=== PATIENT | female | born 1990 | race African-American/Black ===

== ENCOUNTER 2016-09-11 23:22 | Inpatient (IN) | payer OTHER ==
[~2016-09-11] VITALS: Ht 162.6 cm; Wt 72.7 kg
[~2016-09-11 23:22] MED LIST: ACET50TA PO; FERR325T3 PO; IBUP80TA PO; NUPE1OIN2 TOP; PRENTAB40 PO; ZANTTAB PO
[2016-09-12] MEDS ORDERED: KETOROLAC 30 MG/ML VIAL (J1885) As Ordered ONE (00:04)
[2016-09-12] MEDS ORDERED: ONDANSETRON 4MG/2ML VIAL (J2405) As Ordered ONE (00:04)
[2016-09-12] MEDS ORDERED: ACETAMINOPHEN 325 MG TAB As Ordered ONE (00:04)
[2016-09-12 00:13] LABS: BASO # 0.1 K/mm3 (0.0-0.2); BASO % 0.4 % (0.0-1.0); CONTROL LINE HCG INT CTR LINE PRESENT; EOS % 0.1 % (0.0-3.0); LARGE UNSTAINED CELL # 0.4 K/mm3 (0.0-0.4); LARGE UNSTAINED CELL % 2.6 % (0.0-4.0); LYMPH # 1.7 K/mm3 (1.5-6.5); LYMPH % 7.7 % (24.0-44.0); MEAN CORPUSCULAR HEMOGLOBIN 25.6 pg (27.0-33.0); MEAN CORPUSCULAR HGB CONC 34.6 g/dl (32.0-36.5); MONO # 1.1 K/mm3 (0.0-0.8); MONO % 6.6 % (0.0-5.0); NEUTROPHILS # 13.8 K/mm3 (1.8-7.7); NEUTROPHILS % 82.5 % (36.0-66.0); PLATELET COUNT, AUTOMATED 172 k/mm3 (150-450); RED CELL DISTRIBUTION WIDTH 15.2 % (11.5-14.5); WHITE BLOOD COUNT 16.7 K/mm3 (4.0-10.0)
[2016-09-12 00:21] LABS: ALBUMIN 3.1 GM/DL (3.2-5.2); ALBUMIN/GLOBULIN RATIO 0.65 (1.00-1.93); ALKALINE PHOSPHATASE 99 U/L (45-117); ALT/SGPT 29 U/L (12-78); AMYLASE 48 U/L (25-115); ANION GAP 11 MEQ/L (8-16); AST/SGOT 39 U/L (15-37); BILIRUBIN,DIRECT 0.4 MG/DL (0.0-0.2); BILIRUBIN,TOTAL 1.4 MG/DL (0.2-1.0); BLOOD UREA NITROGEN 8 MG/DL (7-18); CALCIUM LEVEL 8.5 MG/DL (8.5-10.1); CARBON DIOXIDE LEVEL 24 MEQ/L (21-32); CHLORIDE LEVEL 101 MEQ/L (98-107); CREATININE FOR GFR 1.18 MG/DL (0.55-1.02); GLOMERULAR FILTRATION RATE > 60.0 (>60); GLUCOSE, FASTING 155 MG/DL (70-105); POTASSIUM SERUM 2.9 MEQ/L (3.5-5.1); SODIUM LEVEL 136 MEQ/L (136-145); TOTAL PROTEIN 7.9 GM/DL (6.4-8.2)
[2016-09-12] MEDS ORDERED: ISOVUE-370 76% 100ML VIAL (Q9967) As Ordered ONE (00:59)
--- NOTE | 2016-09-12 01:40 | REPUSA ---
CLINICAL HISTORY: Abdominal pain TECHNIQUE : A CT of the abdomen and pelvis was performed following the administration of oral and int ravenous contrast from the level of the heart to the proximal femoral diaphyses. Multiplanar reformat s were also obtained in coronal and sagittal projections. COMPARISON: None FINDINGS: LOWER CHEST: The lung bases are clear. Heart is normal in size. No pleural or pericardial effusion is seen. LIVER: The liver is normal in size and contour. No hepatic lesion is seen. The portal and hepatic vei ns are patent. BILIARY SYSTEM: No intrahepatic biliary ductal dilatation is seen. The common duct is normal in calib er. The gallbladder is unremarkable with no focal or diffuse wall thickening seen. No pericholecystic fluid is seen. No calcified biliary calculi are identified. PANCREAS: The pancreas is normal in size, contour and density. No solid or cystic pancreatic mass is seen. No pancreatic duct dilatation is seen. SPLEEN: The spleen is normal in size and without focal lesion. ADRENALS: The adrenal glands are unremarkable. KIDNEYS/URETERS: The kidneys are normal in size and demonstrate patchy nephrograms bilaterally. No st ones or hydronephrosis, gross mass or suspicious cystic lesion. URINARY BLADDER: The urinary bladder is unremarkable without calcified stone, wall thickening or dive rticula seen. UTERUS/ADNEXA: Within normal size limits with no suspicious lesion. AORTA AND ILIAC ARTERIES: No aneurysmal dilatation of the aorta or iliac arteries is seen. LYMPH NODES: No enlarged adenopathy. GASTROINTESTINAL: Stomach, duodenum and bowel normal in caliber. PERITONEUM/RETROPERITONEUM: No ascites or suspicious fluid collection, extraluminal air, or suspiciou s mass. ABDOMINAL/PELVIC WALL: No hernia is identified. OSSEOUS STRUCTURES/SOFT TISSUES: No suspicious osseous lesion, acute fracture, or soft tissue abnorma lity. IMPRESSION : Patchy bilateral nephrogram noted raising suspicion for pyelonephritis. No stones or hydronephrosis.
[2016-09-12] MEDS ORDERED: CIPROFLOXACIN/D5W 400 MG/200 ML BAG (J0744) As Ordered ONE (02:45)
[2016-09-12] MEDS ORDERED: POTASSIUM CHLORIDE 10 MEQ SR TABLET As Ordered ONE (02:57)
[2016-09-12] MEDS ORDERED: TYLE325T5 PO (03:35)
[2016-09-12] MEDS ORDERED: ONDANSETRON 4MG/2ML VIAL (J2405) IV PRN (04:00)
[2016-09-12] MEDS ORDERED: POTASSIUM CHLORIDE 10 MEQ SR TABLET PO ONE (04:15)
--- NOTE | 2016-09-12 04:55 | HPE ---
DATE OF ADMISSION: 09/12/2016 PRIMARY CARE PROVIDER: Linda Mabry. HISTORY OF PRESENT ILLNESS: This patient is a 25-year-old Citizen [place] speaking female, presented to [facility] on 09/11/2016, secondary to abdominal pain. Patient stated that the discomfort originally started two nights ago at the right lower quadrant and the discomfort would radiate through the whole abdomen and the right posterior back. Besides the discomfort, patient also noted to have nausea, vomiting, and subjective fevers. Due to the gastrointestinal (GI) symptoms, the patient has had very poor appetite for the past 2-3 days and patient feels her body is getting weaker. Patient has not had any bowel movement for the past 3 days and those symptoms never happened before. The symptom has been persistent and worsening. Patient denies any frequency or dysuria and denies any hematuria. No chest pain. No shortness of breath. When patient arrived to the emergency room, CT of the abdomen and pelvis with contrast was performed, showed possible for pyelonephritis and then the hospitalist team was called for admission. ALLERGIES: No known drug allergies. HOME MEDICATIONS: None. PAST MEDICAL HISTORY: None. PAST SURGICAL HISTORY: None. SOCIAL HISTORY: No smoking. No alcohol use. No recreational drug use. Patient is (G) 1, para (P) 1. REVIEW OF SYSTEMS: GENERAL: Positive fever and for the past 2 days has progressive weakness. HEENT: No vision changes. No auditory changes. CARDIOVASCULAR: No chest pain. No palpitations. RESPIRATORY: No shortness of breath. No cough. No sputum production. GASTROINTESTINAL: Persistent pain originally located at the right lower abdomen radiating to the bilateral lower abdomen and the right posterior back. Patient also had nausea, vomiting. No diarrhea is reported. GENITOURINARY: No frequency. No urgency. No dysuria. No hematuria. MUSCULOSKELETAL: Mo muscle pain or joint pain. NEUROLOGICAL: No numbness or tingling. OBJECTIVE: VITAL SIGNS: All the vital signs are within normal limits. Patient does not require any oxygen support. GENERAL: Fatigue. Alert and awake and oriented. HEENT: Normocephalic, atraumatic. Extraocular motor grossly intact. CARDIOVASCULAR: Positive S1, S2, regular rate. LUNGS: Clear to auscultation bilaterally. ABDOMEN: Tenderness to palpation of the bilateral lower abdomen. No rebound. No guarding. GENITOURINARY: Positive costovertebral angle (CVA) located at the right flank area and during percussion pain is reproduced and will radiate to the right inguinal area. EXTREMITIES: No lower extremity edema. No sign of cyanosis. NEUROLOGICAL: Sensation to fine touch grossly intact. Muscle strength 5/5. LABORATORY DATA: WBC 16.7, hemoglobin 11.1, hematocrit 32, platelet count is 172. Sodium is 136, potassium 3.9, chloride 101, carbon dioxide 24, BUN 8, creatinine 1.18, GFR greater than 60, fasting glucose 155, calcium 8.5, total bilirubin 1.4, direct bilirubin 0.4, AST 39, ALT 29, alkaline phosphatase 99, total protein 7.9, albumin 3.1, amylase 48, lipase 83. HCG is negative. Urinalysis is positive for 1 positive protein, 1 positive blood, 3 positive leukocyte esterase, 47 WBCs, 1 positive bacteria. Microbiology: Blood culture pending times two sets. Urine culture is pending. CT of the abdomen and pelvis with contrast shows patchy bilateral nephrogram raising suspicion for pyelonephritis. No stone or hydronephrosis. ASSESSMENT AND PLAN: 1. Pyelonephritis. Patient will be admitted to medical/surgical floor under inpatient status. Patient will be started on ciprofloxacin. Patient will continue on intravenous (IV) fluid. 2. Leukocytosis. Possibly secondary to pyelonephritis. Will follow with urine culture and blood cultures. 3. Hypokalemia. Potassium level of 2.9, most likely secondary to the fluid loss due to acute gastrointestinal (GI) symptoms. Patient will have oral and intravenous (IV) potassium supplement. 4. Hyperglycemia. Patient has a fasting glucose level of 155. Will follow with A1c. 5. Mild microcytic anemia. Will continue to monitor. 6. Deep venous thrombosis (DVT) prophylaxis. Patient does not have significant risks of developing DVT. No anticoagulation is warranted at this time.
[2016-09-12 05:20] VITALS: BP 109/66
--- NOTE | 2016-09-12 05:30 | EDDOCDS ---
Nurse's Notes [facility] Name: Hailee Sanders Age: 25 yrs Sex: Female : 1990 Arrival Date: 09/11/2016 Time: 23:22 Bed 10 Private MD: LEBRON Mckeon Diagnosis: Urinary tract infection, site not specified-bilateral pyelonephritis Presentation: 09/11 23:26 Presenting complaint: Patient states: reports that reported being weak, lf1 vomiting and unable to walk this morning. No recent travel outside the country. reports that speaks very little Bulgarian, primary language is Nigerian. Adult Sepsis Screening: The patient does not have new or worsening altered mentation. Patient has a respiratory rate of greater than or equal to 22 (1 point). Systolic blood pressure is greater than 100. Patient has a qSOFA score of 1- Negative Sepsis Screen. Suicide/Homicide risk assessment- Unable to assess, . No Bulgarian. Status: The patient is a dependent. Transition of care: patient was not received from another setting of care. 23:26 Acuity: ELEONORA Level 2 lf1 23:26 Method Of Arrival: Wheelchair lf1 Triage Assessment: 23:31 General: Appears ill, Behavior is drowsy, flat. Pain: Denies pain. HIV screening NA for lf1 this visit unable to consent. Neurological: Level of Consciousness is lethargic. EENT: Reports bad taste in mouth. Respiratory: Respiratory pattern is tachypnea Reports shortness of breath. GI: Reports lower abdominal pain, upper abd pain, nausea, vomiting. Derm: Skin is clammy. 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 none - PMHx: none; - PSHx: none; - Social history: Smoking status: Patient states was never smoker of tobacco. Preferred Language: Nigerian, The patient speaks a little Bulgarian. - Family history: Not pertinent. - : The pt / caregiver states he / she is not on anticoagulants. Home medication list is obtained from family members. - Exposure Risk Screening:: None identified. Screenin:49 Screening information is obtained from the patient. Fall risk: No risks identified. kas2 Assistance ADL's: requires no assistance with activities of daily living. Abuse/DV Screen: The patient / caregiver reports he/she is: not in a situation that causes fear, pain or injury. Nutritional screening: No deficits noted. Advance Directives: Currently, there is no health care proxy. There is no active DNR order. There is no living will. 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 Assessment: 23:47 General: Appears in no apparent distress, uncomfortable, well nourished, well groomed, kas2 Behavior is appropriate for age, cooperative. Pain: Location: all over body pain Pain currently is 6 out of 10 on a pain scale. Neurological: Level of Consciousness is awake, alert, Oriented to person, place, time. Cardiovascular: Capillary refill < 3 seconds Heart tones S1 S2 present Rhythm is sinus tachycardia No ectopy. Respiratory: Airway is patent Respiratory effort is even, unlabored, Respiratory pattern is regular, symmetrical, Breath sounds are clear bilaterally. GI: Abdomen is flat, non- distended Bowel sounds present X 4 quads. Abd is soft and non tender X 4 quads. Reports nausea, vomiting. : No deficits noted. Derm: Skin is intact, is healthy with good turgor, Skin is dry, Skin is Skin temperature is hot. 09/12 01:01 General: Patient sitting up in bed with family at bedside. Denies pain or discomfort at kas2 this time. No apparent distress at this time. Call mack within reach. Will continue to monitor.. 01:30 General: Patient up to bathroom to void.. kas2 01:43 General: Patient back from bathroom and resettled in bed. Family at bedside. No kas2 apparent distress at this time. Call mack within reach. Will continue to monitor.. 02:23 General: Appears in no apparent distress, comfortable, well nourished, well groomed, kas2 Behavior is appropriate for age, cooperative. Pain: Denies pain. Neurological: Level of Consciousness is awake, alert, Oriented to person, place, time. Cardiovascular: Rhythm is sinus rhythm No ectopy. Respiratory: Airway is patent Respiratory effort is even, unlabored, Respiratory pattern is regular, symmetrical. Derm: Skin is intact, is healthy with good turgor, Skin is dry, Skin is pink, warm & dry. Skin temperature is warm. 03:50 General: Patient sleeping at this time with family at bedside. No apparent distress kas2 noted. Appears comfortable. Respiratory pattern is even and unlabored. Airway is patent. Call amck within reach. Will continue to monitor.. Vital Signs: 09/11 23:23 BP 122 / 66; Pulse 133; Resp 20 S; Temp 104.9(O); Pulse Ox 99% on R/A; Weight 63.96 kg dd6 (R); Height 5 ft. 4 in. (162.56 cm) (R); 23:26 Resp 34; lf1 23:37 BP 113 / 68 (auto/); kas2 23:39 Pulse 118 MON; Pulse Ox 100% ; kas2 23:52 BP 118 / 65 (auto/); kas2 23:52 Pulse 110 MON; Pulse Ox 99% ; kas2 09/12 00:07 BP 112 / 64 (auto/); kas2 00:07 Pulse 110 MON; Pulse Ox 99% ; kas2 00:22 BP 108 / 59 (auto/); kas2 00:22 Pulse 106 MON; Pulse Ox 98% ; kas2 00:37 BP 109 / 60 (auto/); kas2 00:37 Pulse 102 MON; Pulse Ox 97% ; kas2 00:55 BP 100 / 58 (auto/); kas2 00:55 Pulse 100 MON; Pulse Ox 95% ; kas2 01:00 Resp 18; Temp 100.6(TE); Pulse Ox 100% ; kas2 01:11 BP 123 / 58 (auto/); kas2 01:12 Pulse 102 MON; Pulse Ox 99% ; kas2 01:22 BP 111 / 53 (auto/); kas2 01:22 Pulse 100 MON; Pulse Ox 98% ; kas2 01:40 BP 105 / 61 (auto/); kas2 01:41 Pulse 98 MON; Pulse Ox 94% ; kas2 02:53 BP 97 / 59 (auto/); kas2 02:53 Pulse 86 MON; Pulse Ox 97% ; kas2 03:57 BP 101 / 63; Pulse 82; Resp 18; Temp 98.4(TE); Pulse Ox 100% on R/A; Pain 0/10; kas2 04:38 BP 105 / 62; Pulse 85; Resp 18; Temp 98.6(O); Pulse Ox 99% on R/A; Pain 0/10; kas2 09/11 23:23 Body Mass Index 24.20 (63.96 kg, 162.56 cm) dd6 Vitals: 09/11 23:23 Log In Time: September 11, 2016 at 23:21. RN notified that patient meets Red Flag dd6 criteria. ED Course: 23:23 Patient visited by Arden Phelps PCA. dd6 23:23 Linda [facility] is Private Physician. dd6 23:23 Patient moved to Waiting dd6 23:30 Triage Initiated lf1 23:34 Yolanda Lowery RN is Primary Nurse. lf1 23:34 Patient visited by Dina Granados RN. sls1 23:34 Patient moved to 10 lf1 23:49 Inserted saline lock: 20 gauge in right antecubital area and blood collected. The kas2 patient tolerated the procedure well. No procedures done that require assistance. 23:50 Will Mckeon DO is Attending Physician. mm11 23:50 Patient visited by Yolanda Lowery RN. kas2 23:50 Patient visited by Will Mckeon DO. mm11 23:55 Patient visited by Will Mckeon DO. mm11 09/12 00:01 Amylase Sent. kas2 00:01 Basic Metabolic Profile Sent. kas2 00:01 CBC with Diff Sent. kas2 00:01 HCG,Serum Qualitative Sent. kas2 00:01 Lipase Sent. kas2 00:01 Liver Profile Sent. kas2 00:26 Patient visited by Yolanda Lowery RN. kas2 00:58 BLOOD CULTURES Sent. jmv 01:02 Patient visited by Yolanda Lowery RN. kas2 01:10 Patient visited by Yolanda Lowery RN. kas2 01:43 CT ABD & PELVIS: IV Contrast Only Returned. EDMS 01:45 Patient visited by Yolanda Lowery RN. kas2 01:45 Urine collected. Clean catch specimen. Urine specimen sent to lab. kas2 02:11 Patient name changed from Abla\S\\S\Sodehoume\S\ to Abla\S\Holali\S\Sodehoume. EDMS 02:24 Patient visited by Yolanda Lowery RN. kas2 02:43 Patient visited by Yolanda Lowery RN. kas2 02:47 Adrianna Owens campaign assistant. ys2 02:53 Patient visited by Yolanda Lowery RN. kas2 02:58 Adrianna Owens is Hospitalizing Provider. mm11 03:00 Patient visited by Yolanda Lowery RN. kas2 03:47 Adrianna Owens campaign assistant. ys2 03:52 Patient visited by Yolanda Lowery RN. kas2 03:58 Patient visited by Yolnada Lowery RN. kas2 04:06 [facility] [place] Payment Agreement was scanned into [employer] and attached to record. [facility] 04:23 Will Mckeon DO is Hospitalizing Provider. daq 04:33 Patient visited by Yolanda Lowery RN. kas2 04:34 [facility] [place] [facility] Payment Agreement was scanned into [employer] and attached to record. [facility] 04:39 The patient / caregiver is instructed regarding the plan of care and ED course. kas2 04:58 Patient visited by Yolanda Lowery RN. [facility] Administered Medications: 00:12 Drug: Acetaminophen 650 mg [acetaminophen 325 mg tablet (2 tabs)] Route: PO; kas2 00:12 Drug: NS 0.9% 1000 ml [sodium chloride 0.9 % intravenous solution] Route: IV; Rate: kas2 bolus; Site: right antecubital; 02:52 Follow up: IV Status: Completed infusion; IV Intake: 1000ml [facility] 00:12 Drug: Ondansetron 4 mg [ondansetron HCl 2 mg/mL intravenous solution (2 mL)] Route: kas2 IVP; Site: right antecubital; 00:12 Drug: ketorolac 30 mg [ketorolac 30 mg/mL (1 mL) injection solution (1 mL)] Route: IVP; [facility] Site: right antecubital; 02:52 Drug: Ciprofloxacin 400 mg [ciprofloxacin 400 mg/200 mL in 5 % dextrose intravenous [facility] piggyback] Route: IVPB; Rate: 200 mL/hr; Infused Over: 60 mins; Site: right antecubital; 03:00 Drug: Potassium Chloride 40 mEq [potassium chloride ER 10 mEq tablet,extended release kas2 (4 tabs)] Route: PO; Intake: 02:52 IV: 1000.00ml; Total: 1000.00ml. [facility] Order Results: Lab Order: Amylase; SPEC'M 09/11/16 23:43 Test: AMYLASE; Value: 48; Range: 25-115; Units: U/L; Status: F Lab Order: Basic Metabolic Profile; SPEC'M 09/11/16 23:43 Test: GLUCOSE, FASTING; Value: 155; Range: 70-105; Abnormal: Above high normal; Units: MG/DL; Status: F Test: BLOOD UREA NITROGEN; Value: 8; Range: 7-18; Units: MG/DL; Status: F Test: CREATININE FOR GFR; Value: 1.18; Range: 0.55-1.02; Abnormal: Above high normal; Units: MG/DL; Status: F Test: SODIUM LEVEL; Range: 136-145; Units: MEQ/L; Status: I Test: POTASSIUM SERUM; Range: 3.5-5.1; Units: MEQ/L; Status: I Test: CHLORIDE LEVEL; Range: 98-107; Units: MEQ/L; Status: I Test: CARBON DIOXIDE LEVEL; Range: 21-32; Units: MEQ/L; Status: I Test: ANION GAP; Range: 8-16; Units: MEQ/L; Status: I Test: CALCIUM LEVEL; Range: 8.5-10.1; Units: MG/DL; Status: I Test: GLOMERULAR FILTRATION RATE; Value: > 60.0; Range: >60; Status: F Test: SODIUM LEVEL; Value: 136; Range: 136-145; Units: MEQ/L; Status: F Test: POTASSIUM SERUM; Value: 2.9; Range: 3.5-5.1; Abnormal: Critical Low; Units: MEQ/L; Status: F Test: CHLORIDE LEVEL; Value: 101; Range: 98-107; Units: MEQ/L; Status: F Test: CARBON DIOXIDE LEVEL; Value: 24; Range: 21-32; Units: MEQ/L; Status: F Test: ANION GAP; Value: 11; Range: 8-16; Units: MEQ/L; Status: F Test: CALCIUM LEVEL; Value: 8.5; Range: 8.5-10.1; Units: MG/DL; Status: F Test Note: ; Units are mL/min/1.73 m2 Chronic Kidney Disease Staging per NKF: Stage I & II GFR >=60 Normal to Mildly Decreased Stage III GFR 30-59 Moderately Decreased Stage IV GFR 15-29 Severely Decreased Stage V GFR <15 Very Little GFR Left ESRD GFR <15 on MUSIC MINISTER Lab Order: CBC with Diff; SPEC'M 09/11/16 23:43 Test: WHITE BLOOD COUNT; Value: 16.7; Range: 4.0-10.0; Abnormal: Above high normal; Units: K/mm3; Status: F Test: RED BLOOD COUNT; Value: 4.32; Range: 4.00-5.40; Units: M/mm3; Status: F Test: HEMOGLOBIN; Value: 11.1; Range: 12.0-16.0; Abnormal: Below low normal; Units: g/dl; Status: F Test: HEMATOCRIT; Value: 32.0; Range: 36.0-47.0; Abnormal: Below low normal; Units: %; Status: F Test: MEAN CORPUSCULAR VOLUME; Value: 74.0; Range: 80.0-96.0; Abnormal: Below low normal; Units: fl; Status: F Test: MEAN CORPUSCULAR HEMOGLOBIN; Value: 25.6; Range: 27.0-33.0; Abnormal: Below low normal; Units: pg; Status: F Test: MEAN CORPUSCULAR HGB CONC; Value: 34.6; Range: 32.0-36.5; Units: g/dl; Status: F Test: RED CELL DISTRIBUTION WIDTH; Value: 15.2; Range: 11.5-14.5; Abnormal: Above high normal; Units: %; Status: F Test: PLATELET COUNT, AUTOMATED; Value: 172; Range: 150-450; Units: k/mm3; Status: F Test: NEUTROPHILS %; Value: 82.5; Range: 36.0-66.0; Abnormal: Above high normal; Units: %; Status: F Test: LYMPH %; Value: 7.7; Range: 24.0-44.0; Abnormal: Below low normal; Units: %; Status: F Test: MONO %; Value: 6.6; Range: 0.0-5.0; Abnormal: Above high normal; Units: %; Status: F Test: EOS %; Value: 0.1; Range: 0.0-3.0; Units: %; Status: F Test: BASO %; Value: 0.4; Range: 0.0-1.0; Units: %; Status: F Test: LARGE UNSTAINED CELL %; Value: 2.6; Range: 0.0-4.0; Units: %; Status: F Test: NEUTROPHILS #; Value: 13.8; Range: 1.8-7.7; Abnormal: Above high normal; Units: K/mm3; Status: F Test: LYMPH #; Value: 1.7; Range: 1.5-6.5; Units: K/mm3; Status: F Test: MONO #; Value: 1.1; Range: 0.0-0.8; Abnormal: Above high normal; Units: K/mm3; Status: F Test: EOS #; Value: 0.0; Range: 0.0-0.50; Units: K/mm3; Status: F Test: BASO #; Value: 0.1; Range: 0.0-0.2; Units: K/mm3; Status: F Test: LARGE UNSTAINED CELL #; Value: 0.4; Range: 0.0-0.4; Units: K/mm3; Status: F Lab Order: HCG,Serum Qualitative; SPEC' 09/11/16 23:43 Test: HCG, SERUM QUALITATIVE; Value: NEGATIVE; Range: NEGATIVE; Status: F Lab Order: Lipase; SPEC 09/11/16 23:43 Test: LIPASE; Value: 83; Range: 73-393; Units: U/L; Status: F Lab Order: Liver Profile; SPEC 09/11/16 23:43 Test: AST/SGOT; Value: 39; Range: 15-37; Abnormal: Above high normal; Units: U/L; Status: F Test: ALT/SGPT; Value: 29; Range: 12-78; Units: U/L; Status: F Test: ALKALINE PHOSPHATASE; Value: 99; Range: 45-117; Units: U/L; Status: F Test: BILIRUBIN,TOTAL; Value: 1.4; Range: 0.2-1.0; Abnormal: Above high normal; Units: MG/DL; Status: F Test: BILIRUBIN,DIRECT; Value: 0.4; Range: 0.0-0.2; Abnormal: Above high normal; Units: MG/DL; Status: F Test: TOTAL PROTEIN; Value: 7.9; Range: 6.4-8.2; Units: GM/DL; Status: F Test: ALBUMIN; Value: 3.1; Range: 3.2-5.2; Abnormal: Below low normal; Units: GM/DL; Status: F Test: ALBUMIN/GLOBULIN RATIO; Value: 0.65; Range: 1.00-1.93; Abnormal: Below low normal; Status: F Lab Order: Urinalysis; SPEC'M 09/12/16 01:41 Test: APPEARANCE, URINE; Value: HAZY; Range: CLEAR; Status: F Test: COLOR, URINE; Value: YELLOW; Range: YELLOW; Status: F Test: PH,URINE; Value: 6.0; Range: 5.0-9.0; Units: UNITS; Status: F Test: SPECIFIC GRAVITY URINE AUTO; Value: 1.039; Range: 1.002-1.035; Status: F Test: PROTEIN, URINE AUTO; Value: 1+; Range: NEGATIVE; Abnormal: Above high normal; Units: mg/dL; Status: F Test: GLUCOSE, URINE (UA) AUTO; Value: NEGATIVE; Range: NEGATIVE; Units: mg/dL; Status: F Test: KETONE, URINE AUTO; Value: NEGATIVE; Range: NEGATIVE; Units: mg/dL; Status: F Test: UROBILINOGEN, URINE AUTO; Value: 2.0; Range: 0.0-2.0; Abnormal: Above high normal; Units: mg/dL; Status: F Test: BILIRUBIN, URINE AUTO; Value: NEGATIVE; Range: NEGATIVE; Status: F Test: NITRITE, URINE AUTO; Value: NEGATIVE; Range: NEGATIVE; Status: F Test: LEUKOCYTE ESTERASE, URINE AUTO; Value: 3+; Range: NEGATIVE; Abnormal: Above high normal; Status: F Test: BLOOD, URINE BLOOD; Value: 1+; Range: NEGATIVE; Abnormal: Above high normal; Status: F Test: WBC, URINE AUTO; Value: 47; Range: 0-3; Abnormal: Above high normal; Units: /HPF; Status: F Test: RBC, URINE AUTO; Value: 3; Range: 0-3; Units: /HPF; Status: F Test: BACTERIA, URINE AUTO; Value: 1+; Range: NEGATIVE; Abnormal: Above high normal; Status: F Test: SQUAMOUS EPITHELIAL CELL UR AU; Value: 7; Range: 0-6; Units: /HPF; Status: F Test: TRANSITIONAL EPITHELIAL AUTO; Value: 1; Range: NONE; Units: /HPF; Status: F Test: MUCUS, URINE; Value: SMALL; Range: NEGATIVE; Status: F Test: HYALINE CAST, URINE AUTO; Value: 0; Range: 0-1; Units: /LPF; Status: F Lab Order: HEMOGLOBIN A1C; SPEC'M 09/11/16 23:43 Test: HEMOGLOBIN A1c; Value: 4.7; Range: 4.5-6.2; Units: %; Status: F Test: ESTIMATED AVERAGE GLUCOSE; Value: 88; Range: 60-110; Units: MG/DL; Status: F Radiology Order: CT ABD & PELVIS: IV Contrast Only Test: CT ABD & PELVIS: IV Contrast Only REASON FOR EXAMINATION: Abdomen Pain; ; CLINICAL HISTORY: Abdominal pain; TECHNIQUE : A CT of the abdomen and pelvis was performed following the administration of oral and int; ravenous contrast from the level of the heart to the proximal femoral diaphyses. Multiplanar reformat; s were also obtained in coronal and sagittal projections.; COMPARISON: None; FINDINGS:; LOWER CHEST: The lung bases are clear. Heart is normal in size. No pleural or pericardial effusion is; seen.; LIVER: The liver is normal in size and contour. No hepatic lesion is seen. The portal and hepatic vei; ns are patent.; BILIARY SYSTEM: No intrahepatic biliary ductal dilatation is seen. The common duct is normal in calib; er. The gallbladder is unremarkable with no focal or diffuse wall thickening seen. No pericholecystic; fluid is seen. No calcified biliary calculi are identified.; PANCREAS: The pancreas is normal in size, contour and density. No solid or cystic pancreatic mass is; seen. No pancreatic duct dilatation is seen.; SPLEEN: The spleen is normal in size and without focal lesion.; ADRENALS: The adrenal glands are unremarkable.; KIDNEYS/URETERS: The kidneys are normal in size and demonstrate patchy nephrograms bilaterally. No st; ones or hydronephrosis, gross mass or suspicious cystic lesion.; URINARY BLADDER: The urinary bladder is unremarkable without calcified stone, wall thickening or dive; rticula seen.; UTERUS/ADNEXA: Within normal size limits with no suspicious lesion.; AORTA AND ILIAC ARTERIES: No aneurysmal dilatation of the aorta or iliac arteries is seen.; LYMPH NODES: No enlarged adenopathy.; GASTROINTESTINAL: Stomach, duodenum and bowel normal in caliber.; PERITONEUM/RETROPERITONEUM: No ascites or suspicious fluid collection, extraluminal air, or suspiciou; s mass.; ABDOMINAL/PELVIC WALL: No hernia is identified.; OSSEOUS STRUCTURES/SOFT TISSUES: No suspicious osseous lesion, acute fracture, or soft tissue abnorma; lity.; IMPRESSION :; Patchy bilateral nephrogram noted raising suspicion for pyelonephritis. No stones or hydronephrosis.; ; Outcome: 02:58 Decision to Hospitalize by Provider. mm11 04:39 Discharge Assessment: patient administered narcotics - no. The following High Risk [facility] Discharge criteria are identified: None. Admitted to Med/Surg accompanied by tech, via stretcher, with chart. Condition: good Condition: stable Condition: improved. CT Study completed. Property :Personal belongings accompany Pt. 05:27 Patient left the ED. [facility] Signatures: Dispatcher [employer] EDMS Sarah Wood, RN RN Evelyn Powell,RN RN lf1 Will Mckeon DO DO mm11 Arden Phelps, BUFFET WAITER/WAITRESS BUFFET WAITER/WAITRESS dd6 Dina Granados, RN RN don1 Anya Cramer Adrianna Owens 2 Yolanda Lowery RN RN kas2 Marino Donovan, BUFFET WAITER/WAITRESS BUFFET WAITER/WAITRESS jmv [facility]
--- NOTE | 2016-09-12 05:30 | EDDOCDS ---
Physician Documentation [facility] Name: Hailee Sanders Age: 25 yrs Sex: Female : 1990 Arrival Date: 09/11/2016 Time: 23:22 Bed 10 Private MD: Linda [facility] [place] Disposition: 09/12/16 02:58 Hospitalization ordered by Will Mckeon for Inpatient Admission. Preliminary diagnosis is Urinary tract infection, site not specified - bilateral pyelonephritis. - Bed requested for M PED. - Status is Inpatient Admission. kas2 - Condition is Stable. - Problem is an acute exacerbation. - Symptoms have improved. Historical: - Allergies: No known drug Allergies; - Home Meds: 1. none - PMHx: none; - PSHx: none; - Social history: Smoking status: Patient states was never smoker of tobacco. Preferred Language: Tajik, The patient speaks a little Beninese. - Family history: Not pertinent. - : The pt / caregiver states he / she is not on anticoagulants. Home medication list is obtained from family members. - Exposure Risk Screening:: None identified. 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 4 in. (162.56 cm) (R); 23:26 Resp 34; lf1 23:37 BP 113 / 68 (auto/); kas2 23:39 Pulse 118 MON; Pulse Ox 100% ; kas2 23:52 BP 118 / 65 (auto/); kas2 23:52 Pulse 110 MON; Pulse Ox 99% ; kas2 09/12 00:07 BP 112 / 64 (auto/); kas2 00:07 Pulse 110 MON; Pulse Ox 99% ; kas2 00:22 BP 108 / 59 (auto/); kas2 00:22 Pulse 106 MON; Pulse Ox 98% ; kas2 00:37 BP 109 / 60 (auto/); kas2 00:37 Pulse 102 MON; Pulse Ox 97% ; kas2 00:55 BP 100 / 58 (auto/); kas2 00:55 Pulse 100 MON; Pulse Ox 95% ; kas2 01:00 Resp 18; Temp 100.6(TE); Pulse Ox 100% ; kas2 01:11 BP 123 / 58 (auto/); kas2 01:12 Pulse 102 MON; Pulse Ox 99% ; kas2 01:22 BP 111 / 53 (auto/); kas2 01:22 Pulse 100 MON; Pulse Ox 98% ; kas2 01:40 BP 105 / 61 (auto/); kas2 01:41 Pulse 98 MON; Pulse Ox 94% ; kas2 02:53 BP 97 / 59 (auto/); kas2 02:53 Pulse 86 MON; Pulse Ox 97% ; kas2 03:57 BP 101 / 63; Pulse 82; Resp 18; Temp 98.4(TE); Pulse Ox 100% on R/A; Pain 0/10; kas2 04:38 BP 105 / 62; Pulse 85; Resp 18; Temp 98.6(O); Pulse Ox 99% on R/A; Pain 0/10; kas2 09/11 23:23 Body Mass Index 24.20 (63.96 kg, 162.56 cm) dd6 MDM: 09/11 23:57 Acetaminophen Tablet 650 mg PO once ordered. mm11 23:57 NS 0.9% 1000 ml IV at bolus once ordered. mm11 23:57 Ondansetron 4 mg IVP once ordered. mm11 23:57 ketorolac 30 mg IVP once ordered. mm11 23:57 -Blood Culture (Adults Only), peripheral from different site, or from device/port/PICC mm11 etc. if present ordered. 23:57 IV Saline Lock ordered. mm11 23:57 Undress patient appropriately for examination ordered. mm11 23:59 Amylase Ordered. EDMS 23:59 Basic Metabolic Profile Ordered. EDMS 23:59 CBC with Diff Ordered. EDMS 23:59 HCG,Serum Qualitative Ordered. EDMS 23:59 Lipase Ordered. EDMS 23:59 Liver Profile Ordered. EDMS 23:59 Urinalysis Ordered. EDMS 23:59 -Blood Culture Ordered. EDMS 23:59 Urine Culture Ordered. EDMS 23:59 Chest, 2 View (pa\E\lat) Ordered. EDMS 09/12 00:02 -Blood Culture (Adults Only), peripheral from different site, or from device/port/PICC kas2 etc. if present complete. 00:20 BLOOD CULTURES Ordered. EDMS 00:32 Basic Metabolic Profile Reviewed. mm11 00:32 CBC with Diff Reviewed. mm11 00:32 Liver Profile Reviewed. mm11 00:32 Amylase Reviewed. mm11 00:32 HCG,Serum Qualitative Reviewed. mm11 00:32 Lipase Reviewed. mm11 00:35 CT ABD & PELVIS: IV Contrast Only Ordered. EDMS 00:57 Financial registration complete. [facility] 02:32 Urinalysis Reviewed. mm11 02:32 CT ABD & PELVIS: IV Contrast Only Reviewed. mm11 02:40 Ciprofloxacin 400 mg IVPB at 200 mL/hr once over 60 mins ordered. mm11 02:40 Misc. Nursing Order ordered. mm11 02:41 BED REQUEST+ADM ordered. EDMS 02:53 Potassium Chloride Extended Release Tablet 40 mEq PO once ordered. mm11 03:55 Admission / Observation Status ordered. EDMS 03:55 REGULAR DIET ordered. EDMS 04:06 [facility] Payment Agreement was scanned into [employer] and attached to record. [facility] 04:09 HEMOGLOBIN A1C Ordered. EDMS 04:34 [facility] Payment Agreement was scanned into [employer] and attached to record. [facility] Administered Medications: 00:12 Drug: Acetaminophen 650 mg [acetaminophen 325 mg tablet (2 tabs)] Route: PO; kas2 00:12 Drug: NS 0.9% 1000 ml [sodium chloride 0.9 % intravenous solution] Route: IV; Rate: kas2 bolus; Site: right antecubital; 02:52 Follow up: IV Status: Completed infusion; IV Intake: 1000ml [facility] 00:12 Drug: Ondansetron 4 mg [ondansetron HCl 2 mg/mL intravenous solution (2 mL)] Route: kas2 IVP; Site: right antecubital; 00:12 Drug: ketorolac 30 mg [ketorolac 30 mg/mL (1 mL) injection solution (1 mL)] Route: IVP; kas2 Site: right antecubital; 02:52 Drug: Ciprofloxacin 400 mg [ciprofloxacin 400 mg/200 mL in 5 % dextrose intravenous kas2 piggyback] Route: IVPB; Rate: 200 mL/hr; Infused Over: 60 mins; Site: right antecubital; 03:00 Drug: Potassium Chloride 40 mEq [potassium chloride ER 10 mEq tablet,extended release kas2 (4 tabs)] Route: PO; Signatures: Dispatcher MedHost EDMS Sarah Wood RN RN Evelyn PowellRN RN lf1 Will Mckeon DO DO mm11 nAya Cramer KimRN RN kas2 The chart was reviewed and I authenticate all verbal orders and agree with the evaluation and treatment provided.Corrections: (The following items were deleted from the chart) 03:59 09/11 23:58 NOTHING BY MOUTH+DIET ordered. EDMS EDMS Attachments: 09/12 04:06 [facility] Payment Agreement [facility] MTDD
[2016-09-12] MEDS: KCL 10MEQ IN 100ML SWI (KRUN) 10 MEQ in APPROPRIATE DILUENT 1 EA IV SCH ×4 (05:44→07:03)
[2016-09-12] MEDS: NS 1,000 ML IV SCH ×2 (05:44→13:51)
[2016-09-12] MEDS: ACETAMINOPHEN TAB 650MG DOSE (2X325MG) PO PRN ×2 (07:03→15:40)
[2016-09-12 07:31] LABS: BASO % 0.1 % (0.0-1.0); EOS % 0.2 % (0.0-3.0); LARGE UNSTAINED CELL # 0.3 K/mm3 (0.0-0.4); LARGE UNSTAINED CELL % 2.4 % (0.0-4.0); LYMPH # 1.1 K/mm3 (1.5-6.5); LYMPH % 7.7 % (24.0-44.0); MEAN CORPUSCULAR HEMOGLOBIN 26.2 pg (27.0-33.0); MEAN CORPUSCULAR HGB CONC 33.4 g/dl (32.0-36.5); MEAN CORPUSCULAR VOLUME 78.4 fl (80.0-96.0); MONO # 0.5 K/mm3 (0.0-0.8); MONO % 3.2 % (0.0-5.0); NEUTROPHILS % 86.4 % (36.0-66.0); PLATELET COUNT, AUTOMATED 155 k/mm3 (150-450); RED CELL DISTRIBUTION WIDTH 14.3 % (11.5-14.5); WHITE BLOOD COUNT 13.9 K/mm3 (4.0-10.0)
[2016-09-12 07:52] LABS: ANION GAP 10 MEQ/L (8-16); BLOOD UREA NITROGEN 9 MG/DL (7-18); CALCIUM LEVEL 8.4 MG/DL (8.5-10.1); CARBON DIOXIDE LEVEL 27 MEQ/L (21-32); CHLORIDE LEVEL 106 MEQ/L (98-107); CREATININE FOR GFR 1.07 MG/DL (0.55-1.02); GLOMERULAR FILTRATION RATE > 60.0 (>60); GLUCOSE, FASTING 126 MG/DL (70-105); MAGNESIUM LEVEL 2.5 MG/DL (1.8-2.4); POTASSIUM SERUM 4.7 MEQ/L (3.5-5.1); SODIUM LEVEL 143 MEQ/L (136-145)
--- NOTE | 2016-09-12 07:56 | REP ---
Clinical: Chest pain and fever of unknown etiology . Comparison: None . Technique: PA and lateral. Findings: The mediastinum and cardiac silhouette are normal. The lung webb are clear and without acute consolidation, effusion, or pneumothorax. The skeletal structures are intact and normal. Impression: 1. No acute cardiopulmonary process. Signed by Ez Wang MD 09/12/2016 07:48 A
[2016-09-12 08:00] VITALS: BP 116/69
[2016-09-12] MEDS: PERCOCET 5MG/325MG TAB PO PRN ×2 (10:45→20:33)
--- NOTE | 2016-09-12 12:13 | IPNPDOC ---
Assessment/Plan Date Seen The patient was seen on 09/12/16. Problems Problems: (1) Pyelonephritis Status: Acute Response to Treatment: Improving Discussed With: Patient Problem Specific Plan: Monitor Clinically, Repeat Labs Problem Text: Pain has resolved. Leukocytosis improved. Pending urine cultures/ sensitivities. Plan / VTE VTE Prophylaxis Ordered?: Yes (mechanical - encourage ambulation) Plan IVF: Continue Diet: Continue Current Activity: Continue Current Diagnostics: Repeat Labs in AM, Obtain Cultures Anticipated Discharge: Home Subjective Review of Systems CC/HPI The patient is a 25-year-old female admitted with a reason for visit of Pyelonephritis. General: Denies: Chills, Fatigue, Malaise, Night Sweats, Normal Appetite, Other Symptoms, ROS Unobtainable Constitutional: Denies: Chills, Fatigue, Fever, Lethargy, Malaise, Night Sweats , Other, Weakness, Weight Loss Eyes: Denies: Conjunctivae inflammation, Eyelid inflammation, Other, Pain, Redness, Vision change ENT: Denies: Dysphagia, Ear Pain, Epistaxis, Head Aches, Other Symptoms, Post Nasal Drip, Sinus Congestion, Sore Throat Skin: Denies: Breakdown, Bruising, Dry, Itching, Jaundice, Lesions, Nail Changes, Other, Rash Pulmonary: Denies: Cough, Dyspnea, Other Symptoms, Pleuritic Chest Pain Cardiovascular: Denies: Chest Pain, Edema, Lt Headedness, Orthopnea, Other Symptoms, Palpitations, Paroxysmal Noc. Dyspnea Gastrointestinal: Denies: Abdominal Pain, Constipation, Diarrhea, Hematochezia , Melena, Nausea, Other Symptoms, Vomiting Genitourinary: Denies: Dysuria, Frequency, Hematuria, Incontinence, Other Symptoms, Retention Objective Physical Examination General Exam: Positive: Alert, Cooperative, No Acute Distress Eye Exam: Positive: Conjunctiva & lids normal, PERRLA ENT Exam: Positive: Atraumatic Neck Exam: Positive: Supple Chest Exam: Positive: Clear to auscultation, Normal air movement Heart Exam: Positive: Rate Normal, Regular Rhythm Telemetry: Positive: No significant arrhythmia Abdomen Exam: Positive: Normal bowel sounds, Soft, Negative: Tenderness Extremity Exam: Negative: Edema Psych Exam: Positive: Oriented x 3 Vital Signs/I&O Vital Signs Date Time Temp Pulse Resp B/P Pulse Ox O2 Delivery O2 Flow Rate FiO2 09/12/16 11:15 20 09/12/16 09:30 100.6 09/12/16 08:00 107 116/69 100 Room Air I&O- Last 24 Hours up to 6 AM 09/12/16 05:59 Intake Total 0 ml Output Total 0 ml Balance 0 ml Laboratory Data Labs 24H Laboratory Tests 2 09/11/16 23:43: Aspartate Amino Transf (AST/SGOT) 39H, Alanine Aminotransferase (ALT/SGPT) 29, Alkaline Phosphatase 99, Total Bilirubin 1.4H, Direct Bilirubin 0.4H, Albumin 3.1L, Albumin/Globulin Ratio 0.65L, Amylase Level 48, Anion Gap 11, White Blood Count 16.7H, Red Blood Count 4.32, Hemoglobin 11.1L, Hematocrit 32.0L, Mean Corpuscular Volume 74.0L, Mean Corpuscular Hemoglobin 25.6L, Mean Corpuscular Hemoglobin Concent 34.6, Red Cell Distribution Width 15.2H, Platelet Count 172, Neutrophils (%) (Auto) 82.5H, Lymphocytes (%) (Auto) 7.7L, Monocytes (%) (Auto) 6.6H, Eosinophils (%) (Auto) 0.1, Basophils (%) (Auto) 0.4, Neutrophils # (Auto ) 13.8H, Lymphocytes # (Auto) 1.7, Monocytes # (Auto) 1.1H, Eosinophils # (Auto ) 0.0, Basophils # (Auto) 0.1, Calcium Level 8.5, Estimated Mean Plasma Glucose 88, Glomerular Filtration Rate > 60.0, Hemoglobin A1c 4.7, Human Chorionic Gonadotropin, Qual NEGATIVE, Large Unclassified Cells # 0.4, Large Unclassified Cells % 2.6, Lipase 83, Total Protein 7.9 09/12/16 01:41: Urine Amorphous Sediment , Urine Appearance HAZY, Urine Color YELLOW, Urine pH 6.0, Urine Specific [place] 1.039, Urine Protein 1+H, Urine Glucose (UA) NEGATIVE, Urine Ketones NEGATIVE, Urine Urobilinogen 2.0H, Urine Bilirubin NEGATIVE, Urine Leukocyte Esterase 3+H, Urine Bacteria (Auto) 1+H, Urine Blood 1 +H, Urine Calcium Carbonate Cryst(Auto) , Urine Calcium Oxalate Cryst (Auto) , Urine Calcium Phosphate Tatiana (Auto) , Urine Cellular Casts , Urine Cystine Crystals , Urine Granular Casts (Auto) , Urine Hyaline Casts (Auto) 0, Urine Leucine Crystals , Urine Mucus (Auto) SMALL, Urine Nitrite NEGATIVE, Urine Oval Fat Bodies (Auto) , Urine RBC (Auto) 3, Urine Renal Epithelial Cells , Urine Sperm (Auto) , Urine Squamous Epithelial Cells 7, Urine Transitional Epithelial Cells 1, Urine Trichomonas (Auto) , Urine Triple Phosphate Cryst (Auto) , Urine Tyrosine Crystals , Urine Uric Acid Crystals (Auto) , Urine WBC (Auto) 47H, Urine Waxy Casts (Auto) , Urine Yeast-Like Cells (Auto) 09/12/16 07:07: Anion Gap 10, White Blood Count 13.9H, Red Blood Count 4.23, Hemoglobin 11.1L, Hematocrit 33.2L, Mean Corpuscular Volume 78.4L, Mean Corpuscular Hemoglobin 26.2L, Mean Corpuscular Hemoglobin Concent 33.4, Red Cell Distribution Width 14.3, Platelet Count 155, Neutrophils (%) (Auto) 86.4H, Lymphocytes (%) (Auto) 7.7L, Monocytes (%) (Auto) 3.2, Eosinophils (%) (Auto) 0.2, Basophils (%) (Auto ) 0.1, Neutrophils # (Auto) 12.0H, Lymphocytes # (Auto) 1.1L, Monocytes # (Auto ) 0.5, Eosinophils # (Auto) 0.0, Basophils # (Auto) 0.0, Calcium Level 8.4L, Glomerular Filtration Rate > 60.0, Large Unclassified Cells # 0.3, Large Unclassified Cells % 2.4, Blood Urea Nitrogen 9, Creatinine 1.07H, Sodium Level 143#, Potassium Level 4.7#, Chloride Level 106, Carbon Dioxide Level 27, Magnesium Level 2.5H CBC/BMP Laboratory Tests 09/11/16 23:43 Red Blood Count 4.32, Mean Corpuscular Volume 74.0 L, Mean Corpuscular Hemoglobin 25.6 L, Mean Corpuscular Hemoglobin Concent 34.6, Red Cell Distribution Width 15.2 H, Neutrophils (%) (Auto) 82.5 H, Lymphocytes (%) (Auto ) 7.7 L, Monocytes (%) (Auto) 6.6 H, Eosinophils (%) (Auto) 0.1, Basophils (%) ( Auto) 0.4, Neutrophils # (Auto) 13.8 H, Lymphocytes # (Auto) 1.7, Monocytes # ( Auto) 1.1 H, Eosinophils # (Auto) 0.0, Basophils # (Auto) 0.1 09/12/16 07:07 Red Blood Count 4.23, Mean Corpuscular Volume 78.4 L, Mean Corpuscular Hemoglobin 26.2 L, Mean Corpuscular Hemoglobin Concent 33.4, Red Cell Distribution Width 14.3, Neutrophils (%) (Auto) 86.4 H, Lymphocytes (%) (Auto) 7.7 L, Monocytes (%) (Auto) 3.2, Eosinophils (%) (Auto) 0.2, Basophils (%) (Auto ) 0.1, Neutrophils # (Auto) 12.0 H, Lymphocytes # (Auto) 1.1 L, Monocytes # ( Auto) 0.5, Eosinophils # (Auto) 0.0, Basophils # (Auto) 0.0, Calcium Level 8.4 L Microbiology Microbiology 09/12/16 Blood Culture, Received Pending 09/11/16 Blood Culture, Received Pending 09/12/16 Urine Culture, Received Pending DEB FREEMAN MD Sep 12, 2016 12:13
[2016-09-12 16:00] VITALS: BP 106/59
[2016-09-12] MEDS: cefTRIAXone SOD 1 GM in D5W MINI-BAG PLUS 50 ML IV SCH (17:25)
[2016-09-12] MEDS ORDERED: SODIUM CHLORIDE 0.9% 1000 ML IV ONE (17:30)
[2016-09-12] MEDS ORDERED: CIPROFLOXACIN 400 MG in APPROPRIATE DILUENT 1 EA IV SCH (18:00)
[2016-09-12 20:00] VITALS: BP 111/66
[2016-09-13] VITALS: BP 115/64
[2016-09-13] MEDS: NS 1,000 ML IV SCH ×3 (00:19→19:51)
[2016-09-13] MEDS: ACETAMINOPHEN TAB 650MG DOSE (2X325MG) PO PRN ×2 (00:19→17:12)
[2016-09-13] MEDS ORDERED: IBUPROFEN 400 MG TAB As Ordered ONE (01:57)
[2016-09-13] MEDS ORDERED: SODIUM CHLORIDE 0.9% 1000 ML IV ONE (02:00)
[2016-09-13] MEDS ORDERED: IBUPROFEN 400 MG TAB PO ONE (02:00)
[2016-09-13] MEDS: PERCOCET 5MG/325MG TAB PO PRN (02:00)
[2016-09-13 03:07] VITALS: BP 113/58
[2016-09-13 04:00] VITALS: BP 116/71
[2016-09-13 06:51] LABS: BASO % 0.1 % (0.0-1.0); EOS % 0.4 % (0.0-3.0); LARGE UNSTAINED CELL # 0.7 K/mm3 (0.0-0.4); LYMPH # 1.2 K/mm3 (1.5-6.5); LYMPH % 9.7 % (24.0-44.0); MEAN CORPUSCULAR HEMOGLOBIN 25.7 pg (27.0-33.0); MEAN CORPUSCULAR HGB CONC 32.5 g/dl (32.0-36.5); MEAN CORPUSCULAR VOLUME 79.3 fl (80.0-96.0); MONO # 0.8 K/mm3 (0.0-0.8); MONO % 6.7 % (0.0-5.0); NEUTROPHILS # 9.2 K/mm3 (1.8-7.7); NEUTROPHILS % 77.1 % (36.0-66.0); PLATELET COUNT, AUTOMATED 130 k/mm3 (150-450); RED CELL DISTRIBUTION WIDTH 14.6 % (11.5-14.5); WHITE BLOOD COUNT 11.9 K/mm3 (4.0-10.0)
[2016-09-13 07:06] LABS: ANION GAP 6 MEQ/L (8-16); BLOOD UREA NITROGEN 6 MG/DL (7-18); CARBON DIOXIDE LEVEL 25 MEQ/L (21-32); CHLORIDE LEVEL 108 MEQ/L (98-107); CREATININE FOR GFR 0.85 MG/DL (0.55-1.02); GLOMERULAR FILTRATION RATE > 60.0 (>60); GLUCOSE, FASTING 138 MG/DL (70-105); POTASSIUM SERUM 4.8 MEQ/L (3.5-5.1); SODIUM LEVEL 139 MEQ/L (136-145)
[2016-09-13 08:00] VITALS: BP 111/70
--- NOTE | 2016-09-13 08:50 | IPNPDOC ---
Assessment/Plan Date Seen The patient was seen on 09/13/16. Problems Problems: (1) Pyelonephritis Status: Acute Response to Treatment: Improving Discussed With: Patient Problem Specific Plan: Monitor Clinically, Repeat Labs Problem Text: Pain has resolved. Leukocytosis continues to improve. Pending urine cultures/sensitivities. Still spiking fevers. Repeat BCx ordered. Continue ceftriaxone. Plan / VTE VTE Prophylaxis Ordered?: No VTE Exclusion Mechanical Proph: Low Risk for VTE (encourage ambulation) Plan IVF: Continue Diet: Continue Current Activity: Continue Current, Encourage Ambulation Diagnostics: Repeat Labs in AM, Obtain Cultures Anticipated Discharge: Home Plan Text Continue IV antibiotics. Cultures pending, still spiking fevers. Subjective Review of Systems CC/HPI The patient is a 25-year-old female admitted with a reason for visit of Pyelonephritis. General: Denies: Chills, Fatigue, Malaise, Night Sweats, Normal Appetite, Other Symptoms, ROS Unobtainable Constitutional: Denies: Chills, Fatigue, Fever, Lethargy, Malaise, Night Sweats , Other, Weakness, Weight Loss Eyes: Denies: Conjunctivae inflammation, Eyelid inflammation, Other, Pain, Redness, Vision change ENT: Denies: Dysphagia, Ear Pain, Epistaxis, Head Aches, Other Symptoms, Post Nasal Drip, Sinus Congestion, Sore Throat Skin: Denies: Breakdown, Bruising, Dry, Itching, Jaundice, Lesions, Nail Changes, Other, Rash Pulmonary: Denies: Cough, Dyspnea, Other Symptoms, Pleuritic Chest Pain Cardiovascular: Denies: Chest Pain, Edema, Lt Headedness, Orthopnea, Other Symptoms, Palpitations, Paroxysmal Noc. Dyspnea Gastrointestinal: Denies: Abdominal Pain, Constipation, Diarrhea, Hematochezia , Melena, Nausea, Other Symptoms, Vomiting Genitourinary: Denies: Dysuria, Frequency, Hematuria, Incontinence, Other Symptoms, Retention Objective Physical Examination General Exam: Positive: Alert, Cooperative, No Acute Distress Eye Exam: Positive: Conjunctiva & lids normal, PERRLA ENT Exam: Positive: Atraumatic Neck Exam: Positive: Supple Chest Exam: Positive: Clear to auscultation, Normal air movement Heart Exam: Positive: Rate Normal, Regular Rhythm Telemetry: Positive: No significant arrhythmia Abdomen Exam: Positive: Normal bowel sounds, Soft, Negative: Tenderness Extremity Exam: Positive: Other (no cva tenderness), Negative: Edema Psych Exam: Positive: Oriented x 3, Other (flat affect) Vital Signs/I&O Vital Signs Date Time Temp Pulse Resp B/P Pulse Ox O2 Delivery O2 Flow Rate FiO2 09/13/16 04:00 97.7 107 18 116/71 99 Room Air I&O- Last 24 Hours up to 6 AM 09/13/16 06:00 Intake Total 1960 ml Balance 1960 ml Laboratory Data Labs 24H Laboratory Tests 2 09/12/16 17:21: Lactic Acid (Sepsis) 1.8 09/13/16 06:20: Anion Gap 6L, White Blood Count 11.9H, Red Blood Count 3.84L, Hemoglobin 9.9L, Hematocrit 30.5L, Mean Corpuscular Volume 79.3L, Mean Corpuscular Hemoglobin 25.7L, Mean Corpuscular Hemoglobin Concent 32.5, Red Cell Distribution Width 14.6H, Platelet Count 130L, Neutrophils (%) (Auto) 77.1H, Lymphocytes (%) (Auto ) 9.7L, Monocytes (%) (Auto) 6.7H, Eosinophils (%) (Auto) 0.4, Basophils (%) ( Auto) 0.1, Neutrophils # (Auto) 9.2H, Lymphocytes # (Auto) 1.2L, Monocytes # ( Auto) 0.8, Eosinophils # (Auto) 0.0, Basophils # (Auto) 0.0, Blood Urea Nitrogen 6L, Creatinine 0.85, Sodium Level 139, Potassium Level 4.8, Chloride Level 108H, Carbon Dioxide Level 25, Calcium Level 8.0L, Glomerular Filtration Rate > 60.0, Large Unclassified Cells # 0.7H, Large Unclassified Cells % 6.0H CBC/BMP Laboratory Tests 09/13/16 06:20 Calcium Level 8.0 L, Red Blood Count 3.84 L, Mean Corpuscular Volume 79.3 L, Mean Corpuscular Hemoglobin 25.7 L, Mean Corpuscular Hemoglobin Concent 32.5, Red Cell Distribution Width 14.6 H, Neutrophils (%) (Auto) 77.1 H, Lymphocytes ( %) (Auto) 9.7 L, Monocytes (%) (Auto) 6.7 H, Eosinophils (%) (Auto) 0.4, Basophils (%) (Auto) 0.1, Neutrophils # (Auto) 9.2 H, Lymphocytes # (Auto) 1.2 L , Monocytes # (Auto) 0.8, Eosinophils # (Auto) 0.0, Basophils # (Auto) 0.0 Microbiology Microbiology 09/12/16 Blood Culture, Received Pending 09/12/16 Blood Culture, Received Pending 09/12/16 Blood Culture - Preliminary, Resulted No growth after 24 hours . All specim... 09/11/16 Blood Culture - Preliminary, Resulted No growth after 24 hours . All specim... 09/12/16 Urine Culture, Received Pending DEB FREEMAN MD Sep 13, 2016 08:50
[2016-09-13 16:00] VITALS: BP 125/77
[2016-09-13] MEDS: cefTRIAXone SOD 1 GM in D5W MINI-BAG PLUS 50 ML IV SCH (17:10)
[2016-09-13 20:00] VITALS: BP 115/66
[2016-09-14] MEDS: NS 1,000 ML IV SCH (01:54)
[2016-09-14 04:00] VITALS: BP 130/88
--- NOTE | 2016-09-14 06:28 | EDDOCDS ---
Physician Documentation [facility] Name: Hailee Sanders Age: 25 yrs Sex: Female : 1990 Arrival Date: 09/11/2016 Time: 23:22 Bed 10 Private MD: Linda [facility] [place] Disposition: 09/12/16 02:58 Hospitalization ordered by Will Mckeon for Inpatient Admission. Preliminary diagnosis is Urinary tract infection, site not specified - bilateral pyelonephritis. - Bed requested for M PED. - Status is Inpatient Admission. kas2 - Condition is Stable. - Problem is an acute exacerbation. - Symptoms have improved. Historical: - Allergies: No known drug Allergies; - Home Meds: 1. none - PMHx: none; - PSHx: none; - Social history: Smoking status: Patient states was never smoker of tobacco. Preferred Language: Zimbabwean, The patient speaks a little Qatari. - Family history: Not pertinent. - : The pt / caregiver states he / she is not on anticoagulants. Home medication list is obtained from family members. - Exposure Risk Screening:: None identified. 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 4 in. (162.56 cm) (R); 23:26 Resp 34; lf1 23:37 BP 113 / 68 (auto/); kas2 23:39 Pulse 118 MON; Pulse Ox 100% ; kas2 23:52 BP 118 / 65 (auto/); kas2 23:52 Pulse 110 MON; Pulse Ox 99% ; kas2 09/12 00:07 BP 112 / 64 (auto/); kas2 00:07 Pulse 110 MON; Pulse Ox 99% ; kas2 00:22 BP 108 / 59 (auto/); kas2 00:22 Pulse 106 MON; Pulse Ox 98% ; kas2 00:37 BP 109 / 60 (auto/); kas2 00:37 Pulse 102 MON; Pulse Ox 97% ; kas2 00:55 BP 100 / 58 (auto/); kas2 00:55 Pulse 100 MON; Pulse Ox 95% ; kas2 01:00 Resp 18; Temp 100.6(TE); Pulse Ox 100% ; kas2 01:11 BP 123 / 58 (auto/); kas2 01:12 Pulse 102 MON; Pulse Ox 99% ; kas2 01:22 BP 111 / 53 (auto/); kas2 01:22 Pulse 100 MON; Pulse Ox 98% ; kas2 01:40 BP 105 / 61 (auto/); kas2 01:41 Pulse 98 MON; Pulse Ox 94% ; kas2 02:53 BP 97 / 59 (auto/); kas2 02:53 Pulse 86 MON; Pulse Ox 97% ; kas2 03:57 BP 101 / 63; Pulse 82; Resp 18; Temp 98.4(TE); Pulse Ox 100% on R/A; Pain 0/10; kas2 04:38 BP 105 / 62; Pulse 85; Resp 18; Temp 98.6(O); Pulse Ox 99% on R/A; Pain 0/10; kas2 09/11 23:23 Body Mass Index 24.20 (63.96 kg, 162.56 cm) dd6 MDM: 09/11 23:57 Acetaminophen Tablet 650 mg PO once ordered. mm11 23:57 NS 0.9% 1000 ml IV at bolus once ordered. mm11 23:57 Ondansetron 4 mg IVP once ordered. mm11 23:57 ketorolac 30 mg IVP once ordered. mm11 23:57 -Blood Culture (Adults Only), peripheral from different site, or from device/port/PICC mm11 etc. if present ordered. 23:57 IV Saline Lock ordered. mm11 23:57 Undress patient appropriately for examination ordered. mm11 23:59 Amylase Ordered. EDMS 23:59 Basic Metabolic Profile Ordered. EDMS 23:59 CBC with Diff Ordered. EDMS 23:59 HCG,Serum Qualitative Ordered. EDMS 23:59 Lipase Ordered. EDMS 23:59 Liver Profile Ordered. EDMS 23:59 Urinalysis Ordered. EDMS 23:59 -Blood Culture Ordered. EDMS 23:59 Urine Culture Ordered. EDMS 23:59 Chest, 2 View (pa\E\lat) Ordered. EDMS 09/12 00:02 -Blood Culture (Adults Only), peripheral from different site, or from device/port/PICC kas2 etc. if present complete. 00:20 BLOOD CULTURES Ordered. EDMS 00:32 Basic Metabolic Profile Reviewed. mm11 00:32 CBC with Diff Reviewed. mm11 00:32 Liver Profile Reviewed. mm11 00:32 Amylase Reviewed. mm11 00:32 HCG,Serum Qualitative Reviewed. mm11 00:32 Lipase Reviewed. mm11 00:35 CT ABD & PELVIS: IV Contrast Only Ordered. EDMS 00:57 Financial registration complete. [facility] 02:32 Urinalysis Reviewed. mm11 02:32 CT ABD & PELVIS: IV Contrast Only Reviewed. mm11 02:40 Ciprofloxacin 400 mg IVPB at 200 mL/hr once over 60 mins ordered. mm11 02:40 Misc. Nursing Order ordered. mm11 02:41 BED REQUEST+ADM ordered. EDMS 02:53 Potassium Chloride Extended Release Tablet 40 mEq PO once ordered. mm11 03:55 Admission / Observation Status ordered. EDMS 03:55 REGULAR DIET ordered. EDMS 04:06 [facility] Payment Agreement was scanned into [employer] and attached to record. [facility] 04:09 HEMOGLOBIN A1C Ordered. EDCT 04:34 [facility] Payment Agreement was scanned into [employer] and attached to record. [facility] 07:53 T-Sheet-- Draft Copy was scanned into [employer] and attached to record. gb Administered Medications: 00:12 Drug: Acetaminophen 650 mg [acetaminophen 325 mg tablet (2 tabs)] Route: PO; kas2 00:12 Drug: NS 0.9% 1000 ml [sodium chloride 0.9 % intravenous solution] Route: IV; Rate: kas2 bolus; Site: right antecubital; 02:52 Follow up: IV Status: Completed infusion; IV Intake: 1000ml [facility] 00:12 Drug: Ondansetron 4 mg [ondansetron HCl 2 mg/mL intravenous solution (2 mL)] Route: kas2 IVP; Site: right antecubital; 00:12 Drug: ketorolac 30 mg [ketorolac 30 mg/mL (1 mL) injection solution (1 mL)] Route: IVP; kas2 Site: right antecubital; 02:52 Drug: Ciprofloxacin 400 mg [ciprofloxacin 400 mg/200 mL in 5 % dextrose intravenous kas2 piggyback] Route: IVPB; Rate: 200 mL/hr; Infused Over: 60 mins; Site: right antecubital; 03:00 Drug: Potassium Chloride 40 mEq [potassium chloride ER 10 mEq tablet,extended release kas2 (4 tabs)] Route: PO; Signatures: Dispatcher [employer] EDMS Clive HERNANDEZ, Sarah RN RN Nati Salinas, Reg Reg gb Evelyn Gagnon RN RN lf1 Will Mckeon, DO mm11 Anya Cramer Yolanda Thomas RN RN kas2 The chart was reviewed and I authenticate all verbal orders and agree with the evaluation and treatment provided.Corrections: (The following items were deleted from the chart) 03:59 09/11 23:58 NOTHING BY MOUTH+DIET ordered. EDMS EDMS Attachments: 09/12 04:06 [facility] Payment Agreement [facility] 07:53 T-Sheet-- Draft Copy gb Chart [facility]
--- NOTE | 2016-09-14 06:28 | EDDOCDS ---
Physician Documentation [facility] Name: Hailee Sanders Age: 25 yrs Sex: Female : 1990 Arrival Date: 09/11/2016 Time: 23:22 Bed 10 Private MD: Linda [facility] [place] Disposition: 09/12/16 02:58 Hospitalization ordered by Will Mckeon for Inpatient Admission. Preliminary diagnosis is Urinary tract infection, site not specified - bilateral pyelonephritis. - Bed requested for M PED. - Status is Inpatient Admission. kas2 - Condition is Stable. - Problem is an acute exacerbation. - Symptoms have improved. Historical: - Allergies: No known drug Allergies; - Home Meds: 1. none - PMHx: none; - PSHx: none; - Social history: Smoking status: Patient states was never smoker of tobacco. Preferred Language: Bruneian, The patient speaks a little French. - Family history: Not pertinent. - : The pt / caregiver states he / she is not on anticoagulants. Home medication list is obtained from family members. - Exposure Risk Screening:: None identified. 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 4 in. (162.56 cm) (R); 23:26 Resp 34; lf1 23:37 BP 113 / 68 (auto/); kas2 23:39 Pulse 118 MON; Pulse Ox 100% ; kas2 23:52 BP 118 / 65 (auto/); kas2 23:52 Pulse 110 MON; Pulse Ox 99% ; kas2 09/12 00:07 BP 112 / 64 (auto/); kas2 00:07 Pulse 110 MON; Pulse Ox 99% ; kas2 00:22 BP 108 / 59 (auto/); kas2 00:22 Pulse 106 MON; Pulse Ox 98% ; kas2 00:37 BP 109 / 60 (auto/); kas2 00:37 Pulse 102 MON; Pulse Ox 97% ; kas2 00:55 BP 100 / 58 (auto/); kas2 00:55 Pulse 100 MON; Pulse Ox 95% ; kas2 01:00 Resp 18; Temp 100.6(TE); Pulse Ox 100% ; kas2 01:11 BP 123 / 58 (auto/); kas2 01:12 Pulse 102 MON; Pulse Ox 99% ; kas2 01:22 BP 111 / 53 (auto/); kas2 01:22 Pulse 100 MON; Pulse Ox 98% ; kas2 01:40 BP 105 / 61 (auto/); kas2 01:41 Pulse 98 MON; Pulse Ox 94% ; kas2 02:53 BP 97 / 59 (auto/); kas2 02:53 Pulse 86 MON; Pulse Ox 97% ; kas2 03:57 BP 101 / 63; Pulse 82; Resp 18; Temp 98.4(TE); Pulse Ox 100% on R/A; Pain 0/10; kas2 04:38 BP 105 / 62; Pulse 85; Resp 18; Temp 98.6(O); Pulse Ox 99% on R/A; Pain 0/10; kas2 09/11 23:23 Body Mass Index 24.20 (63.96 kg, 162.56 cm) dd6 MDM: 09/11 23:57 Acetaminophen Tablet 650 mg PO once ordered. mm11 23:57 NS 0.9% 1000 ml IV at bolus once ordered. mm11 23:57 Ondansetron 4 mg IVP once ordered. mm11 23:57 ketorolac 30 mg IVP once ordered. mm11 23:57 -Blood Culture (Adults Only), peripheral from different site, or from device/port/PICC mm11 etc. if present ordered. 23:57 IV Saline Lock ordered. mm11 23:57 Undress patient appropriately for examination ordered. mm11 23:59 Amylase Ordered. EDMS 23:59 Basic Metabolic Profile Ordered. EDMS 23:59 CBC with Diff Ordered. EDMS 23:59 HCG,Serum Qualitative Ordered. EDMS 23:59 Lipase Ordered. EDMS 23:59 Liver Profile Ordered. EDMS 23:59 Urinalysis Ordered. EDMS 23:59 -Blood Culture Ordered. EDMS 23:59 Urine Culture Ordered. EDMS 23:59 Chest, 2 View (pa\E\lat) Ordered. EDMS 09/12 00:02 -Blood Culture (Adults Only), peripheral from different site, or from device/port/PICC kas2 etc. if present complete. 00:20 BLOOD CULTURES Ordered. EDMS 00:32 Basic Metabolic Profile Reviewed. mm11 00:32 CBC with Diff Reviewed. mm11 00:32 Liver Profile Reviewed. mm11 00:32 Amylase Reviewed. mm11 00:32 HCG,Serum Qualitative Reviewed. mm11 00:32 Lipase Reviewed. mm11 00:35 CT ABD & PELVIS: IV Contrast Only Ordered. EDMS 00:57 Financial registration complete. [facility] 02:32 Urinalysis Reviewed. mm11 02:32 CT ABD & PELVIS: IV Contrast Only Reviewed. mm11 02:40 Ciprofloxacin 400 mg IVPB at 200 mL/hr once over 60 mins ordered. mm11 02:40 Misc. Nursing Order ordered. mm11 02:41 BED REQUEST+ADM ordered. EDMS 02:53 Potassium Chloride Extended Release Tablet 40 mEq PO once ordered. mm11 03:55 Admission / Observation Status ordered. EDMS 03:55 REGULAR DIET ordered. EDMS 04:06 [facility] Payment Agreement was scanned into [employer] and attached to record. [facility] 04:09 HEMOGLOBIN A1C Ordered. EDWA 04:34 [facility] Payment Agreement was scanned into [employer] and attached to record. [facility] 07:53 T-Sheet-- Draft Copy was scanned into [employer] and attached to record. gb Administered Medications: 00:12 Drug: Acetaminophen 650 mg [acetaminophen 325 mg tablet (2 tabs)] Route: PO; kas2 00:12 Drug: NS 0.9% 1000 ml [sodium chloride 0.9 % intravenous solution] Route: IV; Rate: kas2 bolus; Site: right antecubital; 02:52 Follow up: IV Status: Completed infusion; IV Intake: 1000ml [facility] 00:12 Drug: Ondansetron 4 mg [ondansetron HCl 2 mg/mL intravenous solution (2 mL)] Route: kas2 IVP; Site: right antecubital; 00:12 Drug: ketorolac 30 mg [ketorolac 30 mg/mL (1 mL) injection solution (1 mL)] Route: IVP; kas2 Site: right antecubital; 02:52 Drug: Ciprofloxacin 400 mg [ciprofloxacin 400 mg/200 mL in 5 % dextrose intravenous kas2 piggyback] Route: IVPB; Rate: 200 mL/hr; Infused Over: 60 mins; Site: right antecubital; 03:00 Drug: Potassium Chloride 40 mEq [potassium chloride ER 10 mEq tablet,extended release kas2 (4 tabs)] Route: PO; Signatures: Dispatcher [employer] EDMS Clive HERNANDEZ, Sarah RN RN Nati Salinas, Reg Reg gb Evelyn Gagnon RN RN lf1 Will Mckeon, DO mm11 Anya Cramer Yolanda Thomas RN RN kas2 The chart was reviewed and I authenticate all verbal orders and agree with the evaluation and treatment provided.Corrections: (The following items were deleted from the chart) 03:59 09/11 23:58 NOTHING BY MOUTH+DIET ordered. EDMS EDMS Attachments: 09/12 04:06 [facility] Payment Agreement [facility] 07:53 T-Sheet-- Draft Copy gb Chart Complete [facility]
--- NOTE | 2016-09-14 06:28 | EDDOCDS ---
Nurse's Notes [facility] Name: Hailee Sanders Age: 25 yrs Sex: Female : 1990 Arrival Date: 09/11/2016 Time: 23:22 Bed 10 Private MD: LEBRON Mckeon Diagnosis: Urinary tract infection, site not specified-bilateral pyelonephritis Presentation: 09/11 23:26 Presenting complaint: Patient states: reports that reported being weak, lf1 vomiting and unable to walk this morning. No recent travel outside the country. reports that speaks very little Moroccan, primary language is Czech. Adult Sepsis Screening: The patient does not have new or worsening altered mentation. Patient has a respiratory rate of greater than or equal to 22 (1 point). Systolic blood pressure is greater than 100. Patient has a qSOFA score of 1- Negative Sepsis Screen. Suicide/Homicide risk assessment- Unable to assess, . No Moroccan. Status: The patient is a dependent. Transition of care: patient was not received from another setting of care. 23:26 Acuity: ELEONORA Level 2 lf1 23:26 Method Of Arrival: Wheelchair lf1 Triage Assessment: 23:31 General: Appears ill, Behavior is drowsy, flat. Pain: Denies pain. HIV screening NA for lf1 this visit unable to consent. Neurological: Level of Consciousness is lethargic. EENT: Reports bad taste in mouth. Respiratory: Respiratory pattern is tachypnea Reports shortness of breath. GI: Reports lower abdominal pain, upper abd pain, nausea, vomiting. Derm: Skin is clammy. SENIOR PHYSICIAN: 23:26 1, Living 1, LMP 01/2016 lf1 Historical: - Allergies: No known drug Allergies; - Home Meds: 1. none - PMHx: none; - PSHx: none; - Social history: Smoking status: Patient states was never smoker of tobacco. Preferred Language: Czech, The patient speaks a little Moroccan. - Family history: Not pertinent. - : The pt / caregiver states he / she is not on anticoagulants. Home medication list is obtained from family members. - Exposure Risk Screening:: None identified. Screenin:49 Screening information is obtained from the patient. Fall risk: No risks identified. kas2 Assistance ADL's: requires no assistance with activities of daily living. Abuse/DV Screen: The patient / caregiver reports he/she is: not in a situation that causes fear, pain or injury. Nutritional screening: No deficits noted. Advance Directives: Currently, there is no health care proxy. There is no active DNR order. There is no living will. There is no Power of Scene Shifter. home support is adequate. Assessment: 23:47 General: Appears in no apparent distress, uncomfortable, well nourished, well groomed, kas2 Behavior is appropriate for age, cooperative. Pain: Location: all over body pain Pain currently is 6 out of 10 on a pain scale. Neurological: Level of Consciousness is awake, alert, Oriented to person, place, time. Cardiovascular: Capillary refill < 3 seconds Heart tones S1 S2 present Rhythm is sinus tachycardia No ectopy. Respiratory: Airway is patent Respiratory effort is even, unlabored, Respiratory pattern is regular, symmetrical, Breath sounds are clear bilaterally. GI: Abdomen is flat, non- distended Bowel sounds present X 4 quads. Abd is soft and non tender X 4 quads. Reports nausea, vomiting. : No deficits noted. Derm: Skin is intact, is healthy with good turgor, Skin is dry, Skin is Skin temperature is hot. 09/12 01:01 General: Patient sitting up in bed with family at bedside. Denies pain or discomfort at kas2 this time. No apparent distress at this time. Call mack within reach. Will continue to monitor.. 01:30 General: Patient up to bathroom to void.. kas2 01:43 General: Patient back from bathroom and resettled in bed. Family at bedside. No kas2 apparent distress at this time. Call mack within reach. Will continue to monitor.. 02:23 General: Appears in no apparent distress, comfortable, well nourished, well groomed, kas2 Behavior is appropriate for age, cooperative. Pain: Denies pain. Neurological: Level of Consciousness is awake, alert, Oriented to person, place, time. Cardiovascular: Rhythm is sinus rhythm No ectopy. Respiratory: Airway is patent Respiratory effort is even, unlabored, Respiratory pattern is regular, symmetrical. Derm: Skin is intact, is healthy with good turgor, Skin is dry, Skin is pink, warm & dry. Skin temperature is warm. 03:50 General: Patient sleeping at this time with family at bedside. No apparent distress kas2 noted. Appears comfortable. Respiratory pattern is even and unlabored. Airway is patent. Call mack within reach. Will continue to monitor.. Vital Signs: 09/11 23:23 BP 122 / 66; Pulse 133; Resp 20 S; Temp 104.9(O); Pulse Ox 99% on R/A; Weight 63.96 kg dd6 (R); Height 5 ft. 4 in. (162.56 cm) (R); 23:26 Resp 34; lf1 23:37 BP 113 / 68 (auto/); kas2 23:39 Pulse 118 MON; Pulse Ox 100% ; kas2 23:52 BP 118 / 65 (auto/); kas2 23:52 Pulse 110 MON; Pulse Ox 99% ; kas2 09/12 00:07 BP 112 / 64 (auto/); kas2 00:07 Pulse 110 MON; Pulse Ox 99% ; kas2 00:22 BP 108 / 59 (auto/); kas2 00:22 Pulse 106 MON; Pulse Ox 98% ; kas2 00:37 BP 109 / 60 (auto/); kas2 00:37 Pulse 102 MON; Pulse Ox 97% ; kas2 00:55 BP 100 / 58 (auto/); kas2 00:55 Pulse 100 MON; Pulse Ox 95% ; kas2 01:00 Resp 18; Temp 100.6(TE); Pulse Ox 100% ; kas2 01:11 BP 123 / 58 (auto/); kas2 01:12 Pulse 102 MON; Pulse Ox 99% ; kas2 01:22 BP 111 / 53 (auto/); kas2 01:22 Pulse 100 MON; Pulse Ox 98% ; kas2 01:40 BP 105 / 61 (auto/); kas2 01:41 Pulse 98 MON; Pulse Ox 94% ; kas2 02:53 BP 97 / 59 (auto/); kas2 02:53 Pulse 86 MON; Pulse Ox 97% ; kas2 03:57 BP 101 / 63; Pulse 82; Resp 18; Temp 98.4(TE); Pulse Ox 100% on R/A; Pain 0/10; kas2 04:38 BP 105 / 62; Pulse 85; Resp 18; Temp 98.6(O); Pulse Ox 99% on R/A; Pain 0/10; kas2 09/11 23:23 Body Mass Index 24.20 (63.96 kg, 162.56 cm) dd6 Vitals: 09/11 23:23 Log In Time: September 11, 2016 at 23:21. RN notified that patient meets Red Flag dd6 criteria. ED Course: 23:23 Patient visited by Arden Phelps PCA. dd6 23:23 Linda [facility] [place] is Private Physician. dd6 23:23 Patient moved to Waiting dd6 23:30 Triage Initiated lf1 23:34 Yolanda Lowery RN is Primary Nurse. lf1 23:34 Patient visited by Dina Granados RN. sls1 23:34 Patient moved to 10 lf1 23:49 Inserted saline lock: 20 gauge in right antecubital area and blood collected. The kas2 patient tolerated the procedure well. No procedures done that require assistance. 23:50 Will Mckeon DO is Attending Physician. mm11 23:50 Patient visited by Yolanda Lowery RN. kas2 23:50 Patient visited by Will Mckeon DO. mm11 23:55 Patient visited by Will Mckeon DO. mm11 09/12 00:01 Amylase Sent. kas2 00:01 Basic Metabolic Profile Sent. kas2 00:01 CBC with Diff Sent. kas2 00:01 HCG,Serum Qualitative Sent. kas2 00:01 Lipase Sent. kas2 00:01 Liver Profile Sent. kas2 00:26 Patient visited by Yolanda Lowery RN. kas2 00:58 BLOOD CULTURES Sent. jmv 01:02 Patient visited by Yolanda Lowery RN. kas2 01:10 Patient visited by Yolanda Lowery RN. kas2 01:43 CT ABD & PELVIS: IV Contrast Only Returned. EDMS 01:45 Patient visited by Yolanda Lowery RN. kas2 01:45 Urine collected. Clean catch specimen. Urine specimen sent to lab. kas2 02:11 Patient name changed from Abla\S\\S\Sode[place]me\S\ to Abla\S\Holali\S\Sodehoume. EDMS 02:24 Patient visited by Yolanda Lowery RN. kas2 02:43 Patient visited by Yolanda Lowery RN. kas2 02:47 Adrianna Owens net fisher. ys2 02:53 Patient visited by Yolanda Lowery RN. kas2 02:58 Adrianna Owens is Hospitalizing Provider. mm11 03:00 Patient visited by Yolanda Lowery RN. kas2 03:47 Adrianna Owens net fisher. ys2 03:52 Patient visited by Yolanda Lowery RN. kas2 03:58 Patient visited by Yolanda Lowery RN. kas2 04:06 [facility] Payment Agreement was scanned into [employer] and attached to record. [facility] 04:23 Will Mckeon DO is Hospitalizing Provider. daq 04:33 Patient visited by Yolanda Lowery RN. kas2 04:34 [facility] Payment Agreement was scanned into [employer] and attached to record. [facility] 04:39 The patient / caregiver is instructed regarding the plan of care and ED course. kas2 04:58 Patient visited by Yolanda Lowery RN. kas2 07:53 T-Sheet-- Draft Copy was scanned into [employer] and attached to record. gb Administered Medications: 00:12 Drug: Acetaminophen 650 mg [acetaminophen 325 mg tablet (2 tabs)] Route: PO; kas2 00:12 Drug: NS 0.9% 1000 ml [sodium chloride 0.9 % intravenous solution] Route: IV; Rate: kas2 bolus; Site: right antecubital; 02:52 Follow up: IV Status: Completed infusion; IV Intake: 1000ml [email or web address] 00:12 Drug: Ondansetron 4 mg [ondansetron HCl 2 mg/mL intravenous solution (2 mL)] Route: kas2 IVP; Site: right antecubital; 00:12 Drug: ketorolac 30 mg [ketorolac 30 mg/mL (1 mL) injection solution (1 mL)] Route: IVP; [email or web address] Site: right antecubital; 02:52 Drug: Ciprofloxacin 400 mg [ciprofloxacin 400 mg/200 mL in 5 % dextrose intravenous [facility]2 piggyback] Route: IVPB; Rate: 200 mL/hr; Infused Over: 60 mins; Site: right antecubital; 03:00 Drug: Potassium Chloride 40 mEq [potassium chloride ER 10 mEq tablet,extended release kas2 (4 tabs)] Route: PO; Intake: 02:52 IV: 1000.00ml; Total: 1000.00ml. kas2 Order Results: Lab Order: Amylase; SPEC'M 09/11/16 23:43 Test: AMYLASE; Value: 48; Range: 25-115; Units: U/L; Status: F Lab Order: Basic Metabolic Profile; SPEC'M 09/11/16 23:43 Test: GLUCOSE, FASTING; Value: 155; Range: 70-105; Abnormal: Above high normal; Units: MG/DL; Status: F Test: BLOOD UREA NITROGEN; Value: 8; Range: 7-18; Units: MG/DL; Status: F Test: CREATININE FOR GFR; Value: 1.18; Range: 0.55-1.02; Abnormal: Above high normal; Units: MG/DL; Status: F Test: SODIUM LEVEL; Range: 136-145; Units: MEQ/L; Status: I Test: POTASSIUM SERUM; Range: 3.5-5.1; Units: MEQ/L; Status: I Test: CHLORIDE LEVEL; Range: 98-107; Units: MEQ/L; Status: I Test: CARBON DIOXIDE LEVEL; Range: 21-32; Units: MEQ/L; Status: I Test: ANION GAP; Range: 8-16; Units: MEQ/L; Status: I Test: CALCIUM LEVEL; Range: 8.5-10.1; Units: MG/DL; Status: I Test: GLOMERULAR FILTRATION RATE; Value: > 60.0; Range: >60; Status: F Test: SODIUM LEVEL; Value: 136; Range: 136-145; Units: MEQ/L; Status: F Test: POTASSIUM SERUM; Value: 2.9; Range: 3.5-5.1; Abnormal: Critical Low; Units: MEQ/L; Status: F Test: CHLORIDE LEVEL; Value: 101; Range: 98-107; Units: MEQ/L; Status: F Test: CARBON DIOXIDE LEVEL; Value: 24; Range: 21-32; Units: MEQ/L; Status: F Test: ANION GAP; Value: 11; Range: 8-16; Units: MEQ/L; Status: F Test: CALCIUM LEVEL; Value: 8.5; Range: 8.5-10.1; Units: MG/DL; Status: F Test Note: ; Units are mL/min/1.73 m2 Chronic Kidney Disease Staging per NKF: Stage I & II GFR >=60 Normal to Mildly Decreased Stage III GFR 30-59 Moderately Decreased Stage IV GFR 15-29 Severely Decreased Stage V GFR <15 Very Little GFR Left ESRD GFR <15 on MANAGER WIRELESS Lab Order: CBC with Diff; SPEC'M 09/11/16 23:43 Test: WHITE BLOOD COUNT; Value: 16.7; Range: 4.0-10.0; Abnormal: Above high normal; Units: K/mm3; Status: F Test: RED BLOOD COUNT; Value: 4.32; Range: 4.00-5.40; Units: M/mm3; Status: F Test: HEMOGLOBIN; Value: 11.1; Range: 12.0-16.0; Abnormal: Below low normal; Units: g/dl; Status: F Test: HEMATOCRIT; Value: 32.0; Range: 36.0-47.0; Abnormal: Below low normal; Units: %; Status: F Test: MEAN CORPUSCULAR VOLUME; Value: 74.0; Range: 80.0-96.0; Abnormal: Below low normal; Units: fl; Status: F Test: MEAN CORPUSCULAR HEMOGLOBIN; Value: 25.6; Range: 27.0-33.0; Abnormal: Below low normal; Units: pg; Status: F Test: MEAN CORPUSCULAR HGB CONC; Value: 34.6; Range: 32.0-36.5; Units: g/dl; Status: F Test: RED CELL DISTRIBUTION WIDTH; Value: 15.2; Range: 11.5-14.5; Abnormal: Above high normal; Units: %; Status: F Test: PLATELET COUNT, AUTOMATED; Value: 172; Range: 150-450; Units: k/mm3; Status: F Test: NEUTROPHILS %; Value: 82.5; Range: 36.0-66.0; Abnormal: Above high normal; Units: %; Status: F Test: LYMPH %; Value: 7.7; Range: 24.0-44.0; Abnormal: Below low normal; Units: %; Status: F Test: MONO %; Value: 6.6; Range: 0.0-5.0; Abnormal: Above high normal; Units: %; Status: F Test: EOS %; Value: 0.1; Range: 0.0-3.0; Units: %; Status: F Test: BASO %; Value: 0.4; Range: 0.0-1.0; Units: %; Status: F Test: LARGE UNSTAINED CELL %; Value: 2.6; Range: 0.0-4.0; Units: %; Status: F Test: NEUTROPHILS #; Value: 13.8; Range: 1.8-7.7; Abnormal: Above high normal; Units: K/mm3; Status: F Test: LYMPH #; Value: 1.7; Range: 1.5-6.5; Units: K/mm3; Status: F Test: MONO #; Value: 1.1; Range: 0.0-0.8; Abnormal: Above high normal; Units: K/mm3; Status: F Test: EOS #; Value: 0.0; Range: 0.0-0.50; Units: K/mm3; Status: F Test: BASO #; Value: 0.1; Range: 0.0-0.2; Units: K/mm3; Status: F Test: LARGE UNSTAINED CELL #; Value: 0.4; Range: 0.0-0.4; Units: K/mm3; Status: F Lab Order: HCG,Serum Qualitative; [facility] 09/11/16 23:43 Test: HCG, SERUM QUALITATIVE; Value: NEGATIVE; Range: NEGATIVE; Status: F Lab Order: Lipase; [facility] 09/11/16 23:43 Test: LIPASE; Value: 83; Range: 73-393; Units: U/L; Status: F Lab Order: Liver Profile; [facility] 09/11/16 23:43 Test: AST/SGOT; Value: 39; Range: 15-37; Abnormal: Above high normal; Units: U/L; Status: F Test: ALT/SGPT; Value: 29; Range: 12-78; Units: U/L; Status: F Test: ALKALINE PHOSPHATASE; Value: 99; Range: 45-117; Units: U/L; Status: F Test: BILIRUBIN,TOTAL; Value: 1.4; Range: 0.2-1.0; Abnormal: Above high normal; Units: MG/DL; Status: F Test: BILIRUBIN,DIRECT; Value: 0.4; Range: 0.0-0.2; Abnormal: Above high normal; Units: MG/DL; Status: F Test: TOTAL PROTEIN; Value: 7.9; Range: 6.4-8.2; Units: GM/DL; Status: F Test: ALBUMIN; Value: 3.1; Range: 3.2-5.2; Abnormal: Below low normal; Units: GM/DL; Status: F Test: ALBUMIN/GLOBULIN RATIO; Value: 0.65; Range: 1.00-1.93; Abnormal: Below low normal; Status: F Lab Order: Urinalysis; SPEC'M 09/12/16 01:41 Test: APPEARANCE, URINE; Value: HAZY; Range: CLEAR; Status: F Test: COLOR, URINE; Value: YELLOW; Range: YELLOW; Status: F Test: PH,URINE; Value: 6.0; Range: 5.0-9.0; Units: UNITS; Status: F Test: SPECIFIC GRAVITY URINE AUTO; Value: 1.039; Range: 1.002-1.035; Status: F Test: PROTEIN, URINE AUTO; Value: 1+; Range: NEGATIVE; Abnormal: Above high normal; Units: mg/dL; Status: F Test: GLUCOSE, URINE (UA) AUTO; Value: NEGATIVE; Range: NEGATIVE; Units: mg/dL; Status: F Test: KETONE, URINE AUTO; Value: NEGATIVE; Range: NEGATIVE; Units: mg/dL; Status: F Test: UROBILINOGEN, URINE AUTO; Value: 2.0; Range: 0.0-2.0; Abnormal: Above high normal; Units: mg/dL; Status: F Test: BILIRUBIN, URINE AUTO; Value: NEGATIVE; Range: NEGATIVE; Status: F Test: NITRITE, URINE AUTO; Value: NEGATIVE; Range: NEGATIVE; Status: F Test: LEUKOCYTE ESTERASE, URINE AUTO; Value: 3+; Range: NEGATIVE; Abnormal: Above high normal; Status: F Test: BLOOD, URINE BLOOD; Value: 1+; Range: NEGATIVE; Abnormal: Above high normal; Status: F Test: WBC, URINE AUTO; Value: 47; Range: 0-3; Abnormal: Above high normal; Units: /HPF; Status: F Test: RBC, URINE AUTO; Value: 3; Range: 0-3; Units: /HPF; Status: F Test: BACTERIA, URINE AUTO; Value: 1+; Range: NEGATIVE; Abnormal: Above high normal; Status: F Test: SQUAMOUS EPITHELIAL CELL UR AU; Value: 7; Range: 0-6; Units: /HPF; Status: F Test: TRANSITIONAL EPITHELIAL AUTO; Value: 1; Range: NONE; Units: /HPF; Status: F Test: MUCUS, URINE; Value: SMALL; Range: NEGATIVE; Status: F Test: HYALINE CAST, URINE AUTO; Value: 0; Range: 0-1; Units: /LPF; Status: F Lab Order: HEMOGLOBIN A1C; SPEC'M 09/11/16 23:43 Test: HEMOGLOBIN A1c; Value: 4.7; Range: 4.5-6.2; Units: %; Status: F Test: ESTIMATED AVERAGE GLUCOSE; Value: 88; Range: 60-110; Units: MG/DL; Status: F Radiology Order: CT ABD & PELVIS: IV Contrast Only Test: CT ABD & PELVIS: IV Contrast Only REASON FOR EXAMINATION: Abdomen Pain; ; CLINICAL HISTORY: Abdominal pain; TECHNIQUE : A CT of the abdomen and pelvis was performed following the administration of oral and int; ravenous contrast from the level of the heart to the proximal femoral diaphyses. Multiplanar reformat; s were also obtained in coronal and sagittal projections.; COMPARISON: None; FINDINGS:; LOWER CHEST: The lung bases are clear. Heart is normal in size. No pleural or pericardial effusion is; seen.; LIVER: The liver is normal in size and contour. No hepatic lesion is seen. The portal and hepatic vei; ns are patent.; BILIARY SYSTEM: No intrahepatic biliary ductal dilatation is seen. The common duct is normal in calib; er. The gallbladder is unremarkable with no focal or diffuse wall thickening seen. No pericholecystic; fluid is seen. No calcified biliary calculi are identified.; PANCREAS: The pancreas is normal in size, contour and density. No solid or cystic pancreatic mass is; seen. No pancreatic duct dilatation is seen.; SPLEEN: The spleen is normal in size and without focal lesion.; ADRENALS: The adrenal glands are unremarkable.; KIDNEYS/URETERS: The kidneys are normal in size and demonstrate patchy nephrograms bilaterally. No st; ones or hydronephrosis, gross mass or suspicious cystic lesion.; URINARY BLADDER: The urinary bladder is unremarkable without calcified stone, wall thickening or dive; rticula seen.; UTERUS/ADNEXA: Within normal size limits with no suspicious lesion.; AORTA AND ILIAC ARTERIES: No aneurysmal dilatation of the aorta or iliac arteries is seen.; LYMPH NODES: No enlarged adenopathy.; GASTROINTESTINAL: Stomach, duodenum and bowel normal in caliber.; PERITONEUM/RETROPERITONEUM: No ascites or suspicious fluid collection, extraluminal air, or suspiciou; s mass.; ABDOMINAL/PELVIC WALL: No hernia is identified.; OSSEOUS STRUCTURES/SOFT TISSUES: No suspicious osseous lesion, acute fracture, or soft tissue abnorma; lity.; IMPRESSION :; Patchy bilateral nephrogram noted raising suspicion for pyelonephritis. No stones or hydronephrosis.; ; Outcome: 02:58 Decision to Hospitalize by Provider. mm11 04:39 Discharge Assessment: patient administered narcotics - no. The following High Risk [facility] Discharge criteria are identified: None. Admitted to Med/Surg accompanied by tech, via stretcher, with chart. Condition: good Condition: stable Condition: improved. CT Study completed. Property :Personal belongings accompany Pt. 05:27 Patient left the ED. [facility] Signatures: Dispatcher [employer] EDMS Sarah Wood RN RN daq Barnhardt, Gloria, Reg Reg Evelyn GagnonRN RN lf1 Will Mckeon, DO mm11 Arden Phelps, CHARGING CAR OPERATOR CHARGING CAR OPERATOR dd6 Dina Granados, RN RN don1 Anya Cramer Adrianna Owens 2 Yolanda Lowery,RN RN kas2 Marino Donovan, CHARGING CAR OPERATOR CHARGING CAR OPERATOR jmv Chart Complete MTDD
[2016-09-14 08:00] VITALS: BP 121/72
[2016-09-14 08:04] LABS: BASO % 0.3 % (0.0-1.0); EOS # 0.1 K/mm3 (0.0-0.50); EOS % 0.9 % (0.0-3.0); LARGE UNSTAINED CELL # 0.7 K/mm3 (0.0-0.4); LARGE UNSTAINED CELL % 6.8 % (0.0-4.0); LYMPH # 1.4 K/mm3 (1.5-6.5); LYMPH % 13.7 % (24.0-44.0); MEAN CORPUSCULAR HEMOGLOBIN 25.6 pg (27.0-33.0); MEAN CORPUSCULAR VOLUME 77.5 fl (80.0-96.0); MONO # 0.6 K/mm3 (0.0-0.8); MONO % 6.4 % (0.0-5.0); NEUTROPHILS # 7.2 K/mm3 (1.8-7.7); NEUTROPHILS % 71.9 % (36.0-66.0); PLATELET COUNT, AUTOMATED 166 k/mm3 (150-450); RED CELL DISTRIBUTION WIDTH 14.9 % (11.5-14.5)
[2016-09-14 08:22] LABS: ANION GAP 11 MEQ/L (8-16); BLOOD UREA NITROGEN 4 MG/DL (7-18); CALCIUM LEVEL 8.5 MG/DL (8.5-10.1); CARBON DIOXIDE LEVEL 23 MEQ/L (21-32); CHLORIDE LEVEL 106 MEQ/L (98-107); CREATININE FOR GFR 0.71 MG/DL (0.55-1.02); GLOMERULAR FILTRATION RATE > 60.0 (>60); GLUCOSE, FASTING 84 MG/DL (70-105); POTASSIUM SERUM 3.9 MEQ/L (3.5-5.1); SODIUM LEVEL 140 MEQ/L (136-145)
[2016-09-14] MEDS ORDERED: INFLUENZA QUADRIVALENT PF VACCINE 0.5ML SYRINGE/VIAL (90686) IM ONE (09:00)
[2016-09-14] MEDS ORDERED: LEVA750T PO (11:09)
--- NOTE | 2016-09-14 11:38 | DS.PDOC ---
Discharge Summary General Date of Admission Sep 12, 2016 at 03:51 Date of Discharge 09/14/16 Discharge Summary PROCEDURES PERFORMED DURING STAY: None COMPLICATIONS/CHIEF COMPLAINT: Pyelonephritis ADMISSION DIAGNOSES: 1. PYELONEPHRITIS DISCHARGE DIAGNOSES: 1. PYELONEPHRITIS HISTORY OF PRESENT ILLNESS: Patient is a 25 YO female for flank pain, admitted for pyelonephritis. HOSPITAL COURSE: Patient was admitted for pyelonephritis. Responded well to IV hydration and antibiotics. Antibiotics de-escalated as per cultures sensitivities from urine culture. Patient discharged with oral antibiotics and outpatient follow up. DISCHARGE MEDICATIONS: Please see below. ALLERGIES: Please see below. PHYSICAL EXAMINATION ON DISCHARGE: VITAL SIGNS: Please see below. GENERAL: NAD, lying comfortably in bed HEENT: NC/AT, EOMI CARDIOVASCULAR EXAMINATION: +S1S2, RRR RESPIRATORY EXAMINATION: CTA B/L ABDOMINAL EXAMINATION: soft, NT, ND, +BS EXTREMITIES: no edema PSYCHIATRIC EXAMINATION: flat affect LABORATORY DATA: Please see below. DISCHARGE CONDITION: stable ACTIVITY: as tolerated DIET: as tolerated DISCHARGE PLAN AND INSTRUCTIONS: 1. Follow up with PCP in 1-5 days. TIME SPENT ON DISCHARGE: Greater than 30 minutes. Vital Signs/I&Os Vital Signs Date Time Temp Pulse Resp B/P Pulse Ox O2 Delivery O2 Flow Rate FiO2 09/14/16 08:00 98.7 99 18 121/72 100 Room Air I&O- Last 24 Hours up to 6 AM 09/14/16 06:00 Intake Total 2590 ml Output Total 650 ml Balance 1940 ml Laboratory Data Labs 24H Laboratory Tests 2 09/14/16 07:45: Anion Gap 11, White Blood Count 10.0, Red Blood Count 3.91L, Hemoglobin 10.0L, Hematocrit 30.3L, Mean Corpuscular Volume 77.5L, Mean Corpuscular Hemoglobin 25.6L, Mean Corpuscular Hemoglobin Concent 33.0, Red Cell Distribution Width 14.9H, Platelet Count 166, Neutrophils (%) (Auto) 71.9H, Lymphocytes (%) (Auto) 13.7L, Monocytes (%) (Auto) 6.4H, Eosinophils (%) (Auto) 0.9, Basophils (%) ( Auto) 0.3, Neutrophils # (Auto) 7.2, Lymphocytes # (Auto) 1.4L, Monocytes # ( Auto) 0.6, Eosinophils # (Auto) 0.1, Basophils # (Auto) 0.0, Blood Urea Nitrogen 4L, Creatinine 0.71, Sodium Level 140, Potassium Level 3.9, Chloride Level 106, Carbon Dioxide Level 23, Calcium Level 8.5, Glomerular Filtration Rate > 60.0, Large Unclassified Cells # 0.7H, Large Unclassified Cells % 6.8H CBC/BMP Laboratory Tests 09/14/16 07:45 Calcium Level 8.5, Red Blood Count 3.91 L, Mean Corpuscular Volume 77.5 L, Mean Corpuscular Hemoglobin 25.6 L, Mean Corpuscular Hemoglobin Concent 33.0, Red Cell Distribution Width 14.9 H, Neutrophils (%) (Auto) 71.9 H, Lymphocytes (%) ( Auto) 13.7 L, Monocytes (%) (Auto) 6.4 H, Eosinophils (%) (Auto) 0.9, Basophils (%) (Auto) 0.3, Neutrophils # (Auto) 7.2, Lymphocytes # (Auto) 1.4 L, Monocytes # (Auto) 0.6, Eosinophils # (Auto) 0.1, Basophils # (Auto) 0.0 Microbiology Microbiology 09/12/16 Blood Culture - Preliminary, Resulted No growth after 24 hours . All specim... 09/12/16 Blood Culture - Preliminary, Resulted No growth after 24 hours . All specim... 09/12/16 Blood Culture - Preliminary, Resulted No Growth after 48 hours. All Specime... 09/11/16 Blood Culture - Preliminary, Resulted No Growth after 48 hours. All Specime... 09/12/16 Urine Culture - Final, Complete Escherichia Coli Medications Scheduled Levofloxacin Hemihydrate (Levaquin) 750 Mg Tab 750 MG PO DAILY Scheduled PRN Acetaminophen (Tylenol) 325 Mg Tab 325 MG PO Q4H PRN PRN PAIN / FEVER Allergies Coded Allergies: No Known Allergies (Unverified , 08/05/15) DEB FREEMAN MD Sep 14, 2016 11:38
== END 2016-09-14 12:00 | disposition home or self-care (01) | DRG 690 ==
LOC: M ED 23:22 → M ED INP 09-12 03:51 → M PED 09-12 05:16
PROVIDERS: ADMIT Internal Medicine; ATTEND Internal Medicine
DX: N10 Acute pyelonephritis (principal); E87.6 Hypokalemia; D50.9 Iron deficiency anemia, unspecified; D72.829 Elevated white blood cell count, unspecified

== ENCOUNTER 2017-04-22 20:09 | Emergency (ER) | payer OTHER ==
[~2017-04-22] VITALS: Ht 162.6 cm; Wt 62.7 kg
[~2017-04-22 20:09] MED LIST changes: +LEVA750T7 PO; +TYLE325T5 PO
[2017-04-22] MEDS ORDERED: IBUPROFEN 800 MG TAB PO ONE (21:30)
[2017-04-22 22:03] LABS: BASO % 0.2 % (0.0-1.0); EOS # 0.1 K/mm3 (0.0-0.50); EOS % 1.5 % (0.0-3.0); LARGE UNSTAINED CELL # 0.4 K/mm3 (0.0-0.4); LARGE UNSTAINED CELL % 5.3 % (0.0-4.0); LYMPH # 2.3 K/mm3 (1.5-6.5); LYMPH % 21.8 % (24.0-44.0); MEAN CORPUSCULAR HEMOGLOBIN 26.5 pg (27.0-33.0); MEAN CORPUSCULAR HGB CONC 33.8 g/dl (32.0-36.5); MEAN CORPUSCULAR VOLUME 78.4 fl (80.0-96.0); MONO # 0.7 K/mm3 (0.0-0.8); MONO % 7.8 % (0.0-5.0); NEUTROPHILS # 5.3 K/mm3 (1.8-7.7); NEUTROPHILS % 63.3 % (36.0-66.0); PLATELET COUNT, AUTOMATED 206 k/mm3 (150-450); RED CELL DISTRIBUTION WIDTH 13.8 % (11.5-14.5); WHITE BLOOD COUNT 8.4 K/mm3 (4.0-10.0)
[2017-04-22 22:19] LABS: ERYTHROCYTE SEDIMENTATION RATE 83 mm/hr (0-20)
[2017-04-22 23:53] LABS: ALBUMIN 3.1 GM/DL (3.2-5.2); ALKALINE PHOSPHATASE 70 U/L (45-117); ALT/SGPT 17 U/L (12-78); AMYLASE 57 U/L (25-115); ANION GAP 11 MEQ/L (8-16); AST/SGOT 18 U/L (15-37); BILIRUBIN,TOTAL 0.6 MG/DL (0.2-1.0); BLOOD UREA NITROGEN 4 MG/DL (7-18); CALCIUM LEVEL 7.7 MG/DL (8.5-10.1); CARBON DIOXIDE LEVEL 24 MEQ/L (21-32); CHLORIDE LEVEL 104 MEQ/L (98-107); CREATININE FOR GFR 0.79 MG/DL (0.55-1.02); GLOMERULAR FILTRATION RATE > 60.0 (>60); GLUCOSE, FASTING 130 MG/DL (70-105); POTASSIUM SERUM 3.9 MEQ/L (3.5-5.1); SODIUM LEVEL 139 MEQ/L (136-145); TOTAL PROTEIN 7.5 GM/DL (6.4-8.2)
[2017-04-23 00:26] VITALS: BP 116/69
--- NOTE | 2017-04-23 08:42 | REP ---
CERVICAL SPINE SERIES: Seven views. HISTORY: Pain and fever. FINDINGS: Lateral views done in flexion/extension and neutral position show preserved vertebral body heights and normal alignment. Disc spaces are maintained. Prevertebral soft tissues are unremarkable. AP and open mouth odontoid views are normal. Oblique images demonstrate intact neural foramina bilaterally at each cervical level and normally aligned facets. IMPRESSION: Negative cervical spine radiographs. Signed by Colby Keith MD 04/23/2017 08:44 A
--- NOTE | 2017-04-23 11:20 | REP ---
Chest x-ray: Two views. History: Chest and upper abdominal pain. Findings: The lungs are well inflated and free of infiltrate. Heart is not enlarged. Pleural angles are sharp. No significant bony abnormality is seen. No significant change from the comparison study September 12, 2016. Impression: Negative chest x-ray. Signed by Colby Keith MD 04/23/2017 12:34 P
--- NOTE | 2017-04-23 11:33 | REP ---
Right upper quadrant sonography: History: Fever. Upper abdominal pain. Comparison study: No comparison study. Findings: Scanning through the right upper quadrant of the abdomen demonstrates a normal sized, thin-walled gallbladder without evidence of stone or polyp. Common bile duct is normal measuring 0.3 cm in greatest diameter. No focal liver lesion is seen. Liver size is normal. No pancreatic abnormality is observed. No right renal abnormality is seen. There is no evidence of ascites. The right kidney measures 12.1 x 5.9 x 4.8 cm. Impression: Negative right upper quadrant sonography. Signed by Colby Keith MD 04/23/2017 12:35 P
== END 2017-04-23 00:25 | disposition home or self-care (01) ==
LOC: M ED 20:09
DX: B34.9 Viral infection, unspecified (principal); R79.89 Other specified abnormal findings of blood chemistry